=== PATIENT | female | born 1930 | race Caucasian/White ===

== ENCOUNTER 2017-08-23 20:32 | Inpatient (IN) ==
--- NOTE | 2017-08-23 21:04 | Emergency Department Note ---
Lower Extremity Injury HPI - General Chief Complaint: Extremity Injury, Lower Stated Complaint: lower extremity Time Seen by Provider: 08/23/17 20:36 Source: patient Mode of arrival: ambulatory Limitations: no limitations - History of Present Illness HPI Narrative: Patient presents with a stiff left leg and pain difficulty ambulating. Primary concern was that she could not get off the toilet has been experiencing increasing urinary frequency and urgency and incomplete emptying her bladder. 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 This afternoon cramping sensation in the left lower leg and thigh with weakness of the foot unable to bend the knee. Didn't apply a hot pack but unable to change, was painful at times. Sense of "knots in the muscle". States only present the left leg and on the right. Unable to walk without assistance. Requesting a catheter to her bladder discomfort. No fevers or chills no back pain and hematuria. - Related Data Home Medications Medication Instructions Recorded Confirmed [id number] tablet See Dose Instructions PO QDAY 09/22/14 08/23/15 cholecalciferol (vitamin D3) 2,000 2,000 unit PO QDAY cap 09/22/14 08/23/15 unit capsule pyridostigmine bromide 60 mg tablet PO 90 Days #270 10/15/16 10/15/16 Previous Rx's Medication Instructions Recorded KATHRINE stockings #2 each 02/25/15 hydroxyzine HCl 10 mg tablet 10 mg PO TID PRN #60 tab 03/07/15 pyridostigmine bromide ER 180 mg 180 mg PO QID #120 tab 10/15/16 tablet,extended release clindamycin HCl 150 mg capsule 150 mg PO BID #20 cap 11/01/16 Allergies Allergy/AdvReac Type Severity Reaction Status Date / Time meperidine Allergy Unknown UNKNOWN Verified 10/15/16 14:28 nabumetone Allergy Unknown UNKNOWN Verified 10/15/16 14:28 nitrofurantoin Allergy Unknown UNKNOWN Verified 10/15/16 14:28 Sulfa (Sulfonamide Allergy Unknown NERVE PAIN Verified 10/15/16 14:28 Antibiotics) [SULFA (SULFONAMIDE ANTIBIOTICS)] sulfamethoxazole Allergy Unknown Unknown Verified 10/15/16 14:28 [From Bactrim] trimethoprim [From Bactrim] Allergy Unknown Unknown Verified 10/15/16 14:28 Review of Systems All systems ED: reviewed and negative except as stated. Constitutional: Denies: fever, chills ENT ED: Denies: ear pain Cardiovascular: Denies: chest pain, palpitations Respiratory: Denies: shortness of breath Gastrointestinal: Denies: abdominal pain Past Medical History - Past Medical History Attestation: Yes: The following information was validated with the patient. Medical history: Reports: other (myasthenia gravis) Surgical history ED: Reports: knee replacement Family history: Reports: non-contributory - Social History smoking status: Never smoker Physical Exam Limitations: no limitations General appearance: alert, in distress Head: atraumatic, normocephalic Eye: Present: normal appearance. Absent: scleral icterus ENT: normal exam, mucous membranes moist Neck: Present: normal inspection. Absent: lymphadenopathy, thyromegaly Chest: Present: normal inspection. Absent: tenderness Respiratory: Present: normal lung sounds bilaterally. Absent: respiratory distress Cardiovascular: Present: regular rate, normal rhythm Abdominal: Present: soft. Absent: tenderness Extremities: Present: other (hyperreflexive left leg, stiff but no cogwheeling, pain in range of motion particularly in the left hip with associated weakness. Week plantarflexion and dorsiflexion of the great toe on the left when compared to the right she actively flexes and extends above the knee and foot. Pain on flexion and rotation of the hip as well) Course - Reevaluation(s) Reevaluation #1: Patient quizzed again about possible fall, denies Time: 22:37 Vital Signs Temperature 98.0 F 08/23/17 20:34 Pulse Rate 97 H 08/23/17 20:34 Respiratory Rate 19 08/23/17 20:34 Blood Pressure 192/74 08/23/17 20:34 Pulse Oximetry (%) 95 08/23/17 20:34 Temperature 98.0 F 08/23/17 20:34 Pulse Rate 92 H 08/23/17 21:31 Respiratory Rate 19 08/23/17 20:34 Blood Pressure 169/64 08/23/17 21:31 Pulse Oximetry (%) 97 08/23/17 21:31 Extremity Injury, Lower - Lab Data Lab results reviewed: Yes I reviewed the patient's lab results. Result diagrams: 08/23/17 21:06 08/23/17 21:06 Lab Results 08/23/17 08/23/17 Range/Units 21:06 21:06 WBC 16.0 H (4.5-11.0) K/mcL RBC 4.82 (4.00-5.20) M/mcL Hgb 14.3 (12.0-15.0) g/dL Hct 41.6 (36.0-48.0) % MCV 86.4 (80.0-100.0) fL MCH 29.7 (26.0-34.0) pg MCHC 34.4 (31.0-36.0) g/dL RDW 12.1 (11.5-14.5) % Plt Count 255 (140-440) K/mcL MPV 7.8 (7.4-10.4) fL Gran % 83.0 H (38.0-78.0) % Lymph % (Auto) 10.2 L (15.5-49.0) % Moca % (Auto) 5.4 (1.0-12.0) % Eos % (Auto) 0.7 (0.0-7.0) % Baso % (Auto) 0.7 (0.0-2.0) % Gran # 13.3 H (1.8-8.0) K/mcL Lymph # (Auto) 1.6 (1.5-4.8) K/mcL Moca # (Auto) 0.9 (0.1-0.9) K/mcL Eos # (Auto) 0.1 (0.0-0.7) K/mcL Baso # (Auto) 0.1 (0.0-0.3) K/mcL Sodium 139 (133-145) mmol/L Potassium 4.1 (3.3-5.1) mmol/L Chloride 102 (96-108) mmol/L Carbon Dioxide 23 (22-30) mmol/L Anion Gap 14.0 (8-16) BUN 18 (8-23) mg/dl Creatinine 0.7 (0.6-1.1) mg/dl GFR Calculation 80 Glucose 157 H (70-105) mg/dL Calcium 9.3 (8.6-10.4) mg/dl Magnesium 2.0 (1.6-2.5) mg/dL Total Bilirubin 0.4 (0.0-1.0) mg/dL AST 28 (0-37) U/l ALT 23 (0-40) U/l Alkaline Phosphatase 105 (39-117) U/L Total Protein 7.0 (5.9-8.4) gm/dL Albumin 3.9 (3.2-5.2) gm/dL Globulin 3.1 (2.2-3.7) gm/dL Albumin/Globulin Ratio 1.3 (1.0-2.3) TSH 2.83 (0.27-5.01) uIU/ml - Radiology Data Radiology results reviewed: Yes I reviewed the patient's radiology results. CT pelvis with sacral LR fracture, superior inferior left ramus fractures of the pubis. CT of the lumbar spine normal Disposition Pt seen by [facility] only: No Clinical Impression: Urinary retention Pelvic ring fracture Qualifiers: Encounter type: initial encounter Fracture type: closed Qualified Code(s): S32.810A - Multiple fractures of pelvis with stable disruption of pelvic ring, initial encounter for closed fracture Summary: No clear fall, suspect insufficiency Unable to send home due to multiple pelvic fractures Disposition: Xfer As Inpt ([facility]) Condition: Fair Referrals: Jere Hernandez MD [Primary Care Provider] -
[2017-08-23 22:16] LABS: ALT/SGPT 23 U/l (0-40); Albumin 3.9 gm/dL (3.2-5.2); Albumin/Globulin Ratio 1.3 (1.0-2.3); Alkaline Phosphatase 105 U/L (39-117); Blood Urea Nitrogen 18 mg/dl (8-23)
[2017-08-23 22:18] LABS: Basophils # (Auto) 0.1 K/mcL (0.0-0.3); Basophils % (Auto) 0.7 % (0.0-2.0); Eosinophils # (Auto) 0.1 K/mcL (0.0-0.7); Eosinophils % (Auto) 0.7 % (0.0-7.0); Lymphocytes # (Auto) 1.6 K/mcL (1.5-4.8); Lymphocytes % (Auto) 10.2 % (15.5-49.0); Mean Cell Volume 86.4 fL (80.0-100.0); Mean Corpuscular HGB Conc 34.4 g/dL (31.0-36.0); Mean Corpuscular Hemoglobin 29.7 pg (26.0-34.0); Monocytes # (Auto) 0.9 K/mcL (0.1-0.9); Monocytes % (Auto) 5.4 % (1.0-12.0); Platelet Count 255 K/mcL (140-440); RBC 4.82 M/mcL (4.00-5.20); Red Cell Distribution Width 12.1 % (11.5-14.5)
[2017-08-23] MEDS ORDERED: IBUPROFEN 400 MG TABLET PO PRN (23:50)
[2017-08-23] MEDS ORDERED: IBUPROFEN 400 MG TABLET PO ONE ×2 (23:50→23:58)
--- NOTE | 2017-08-23 23:50 | Internal Med History&Physical ---
Medical - H&P: HPI Patient information: Note initiated : 08/23/17 at 11:49 pm Service Date, if different from initiated Date: [] Patient: Abby Bradford 86 y/o F admitted on for lower extremity. Chief Complaint: [] History of present illness: Ms. Brafdord is a 86 year old Female with h/o mysthenia gravis for around 40 yrs, presents to the ER for pain in the left leg, weakness in the left leg starting this afternoon The patient notes she has chronic cramps in the legs. Usually she is able to manage them by applying some heat or cold pads on the leg. This time around she notes her pain started in the left lower foot, cramping in nature, severe, this is not new to her, as time progressed the cramping gradually crept up the thigh. She had significant cramping in the upper part of the thigh. She had significant pain, weakness as well as inability to move. The pain weakness and inability to move her leg is something that is new to her and therefore she came to the ER for further evaluation. She denies any trauma. She has been doing her usual activities and sorting through her stuff in the house but denies any missing steps falling or any unusual activity In the emergency room patient was hemodynamically stable, however she had significant pain and was finding it difficult to ambulate. She requested a Ramos catheter to be placed as she will not be able to use the restroom. She does have overactive bladder symptoms. The patient had a CT scan of the lumbar spine as well as pelvis, lumbar spine according to the ER physician was negative for any acute pathology however the patient has multiple pelvic fractures, on the superior as well as inferior pubic ramus on the left side, and sacral alar. Given that patient has new pelvic fractures, is unable to ambulate by herself she is being admitted to the hospital for further management. The patient denies any revision, diplopia, she does have chronic difficulty in swallowing which gets worse when she is tired but no acute worsening reported. She denies chest pain or shortness of breath, denies any acute cough, no nausea vomiting abdominal pain or diarrhea, she has chronic intermittent constipation. 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) Degenerative disc disease (Chronic 03/05/13) Bladder prolapse (Chronic 03/05/13) Blurred vision (Chronic) Pedal edema (Chronic) Unsteady gait (Chronic) Sialoadenitis (Resolved 09/26/13) Surgical history: Past Surgical History History of (Resolved) History of colonoscopy (Resolved) History of hysterectomy (Resolved) History of knee replacement (Resolved) History of rectocele (Resolved) History of spinal fusion (Resolved) Pertinent family history: Family History Brother Asthma Malignant neoplasm Sister Asthma All 8 Siblings Asthma Cardiac disease Sister Cyst of breast Malignant neoplasm Osteoporosis Unknown Diabetes mellitus Disorder of thyroid Father Cardiac disease Malignant neoplasm Mother Cardiac disease Medical - H&P: Meds Home Medications Medication Instructions Recorded Confirmed Type pyridostigmine bromide ER 180 mg 180 mg PO QID #120 tab 10/15/16 08/23/17 Rx tablet,extended release Allergies Allergy/AdvReac Type Severity Reaction Status Date / Time meperidine Allergy Unknown UNKNOWN Verified 10/15/16 14:28 nabumetone Allergy Unknown UNKNOWN Verified 10/15/16 14:28 nitrofurantoin Allergy Unknown UNKNOWN Verified 10/15/16 14:28 Sulfa (Sulfonamide Allergy Unknown NERVE PAIN Verified 10/15/16 14:28 Antibiotics) [SULFA (SULFONAMIDE ANTIBIOTICS)] sulfamethoxazole Allergy Unknown Unknown Verified 10/15/16 14:28 [From Bactrim] trimethoprim [From Bactrim] Allergy Unknown Unknown Verified 10/15/16 14:28 Medical - H&P: Exam - Constitutional Vitals: Temp Pulse Resp BP Pulse Ox 98.0 F 92 H 19 169/64 97 08/23/17 20:34 08/23/17 21:31 08/23/17 20:34 08/23/17 21:31 08/23/17 21:31 Exam: GENERAL: The patient is a well-developed, well-nourished in no apparent distress. Is alert and oriented x3. VITAL SIGNS: Reviewed and as noted elsewhere. HEENT: Head is normocephalic and atraumatic. Extraocular muscles are intact. Pupils are equal, round, and reactive to light. Nares appeared normal. Mouth appears any without lesions. Mucous membranes are moist. NECK: Normal to inspection, Supple, No lymphadenopathy or thyromegaly. LUNGS: Air entry equal on both sides, no wheezing, crackles or rhonchi noted. No accessory muscles of respiration HEART: Regular rate and rhythm normal, S1 and S2 heard, no Gallop, S3 or Rub Noted, No Gross murmur heard. ABDOMEN: Soft, nontender, and nondistended. Positive bowel sounds. No hepatosplenomegaly was noted. EXTREMITIES: No cyanosis, clubbing, rash, lesions or edema. NEUROLOGIC: Cranial nerves II through XII are grossly intact. Motor and Sensory System Grossly Intact, she is able to move both her lower extremities on my exam , strength 4+/5 in right leg, around 4/5 in left leg, full exam not done in light of acute fracture and significant pain during extremity manipulation. PSYCHIATRIC: Normal affect, Normal Mood. Appropriate Behavior. SKIN: No ulceration or wounds noted, No jaundice, No rash noted. Medical - H&P: Reslt - Labs CBC & Chem 7: 08/23/17 21:06 08/23/17 21:06 Labs: Short CBC 08/23/17 Range/Units 21:06 WBC 16.0 H (4.5-11.0) K/mcL Hgb 14.3 (12.0-15.0) g/dL Hct 41.6 (36.0-48.0) % Plt Count 255 (140-440) K/mcL BMP 08/23/17 21:06 Sodium 139 Potassium 4.1 Chloride 102 Carbon Dioxide 23 BUN 18 Creatinine 0.7 Glucose 157 H Calcium 9.3 Liver Function 08/23/17 Range/Units 21:06 Total Bilirubin 0.4 (0.0-1.0) mg/dL AST 28 (0-37) U/l ALT 23 (0-40) U/l Alkaline Phosphatase 105 (39-117) U/L Albumin 3.9 (3.2-5.2) gm/dL Medical - H&P: A/P - Narrative A/P Narrative: A/P Pelvis fracture/ sacral insufficiency fracture: etiology? 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 await full radiology report in AM Pain management: Pt does not want Tylenol as she notes its toxic to liver, does not want opiates or muscle relazants, wishes to use nsaids, asked for ibuprofen which she has used before, ok with ketorolac if absolutely needed, touch base with ortho in AM and see if there is any operative myasthenia gravis, on pyridostigmine, 180mg sr every 6 hrs, with food, she has her own med, which she plans to take during the hospital stay. continue same, she does not seem to be having an acute exacerbation fo same Leucocytosis: check procalcitonin, and ua, check CXR, hold off on ABX for now given severe side effects reported by the patient if abx used. DVT hep sq Diet regular Full code. Admit to inpt status, anticipate > 3 midnight stay. Social History - Tobacco smoking status: Never smoker
[2017-08-24] MEDS ORDERED: ONDANSETRON 4 MG/2 ML VIAL IV PRN (00:16)
[2017-08-24] MEDS ORDERED: IBUPROFEN 400 MG TABLET PO ONE (00:16)
[2017-08-24] MEDS ORDERED: MAGNESIUM HYDROXIDE 30 ML ORAL.SUSP PO PRN (00:16)
[2017-08-24] MEDS ORDERED: IBUPROFEN 400 MG TABLET PO PRN (00:16)
[2017-08-24] MEDS ORDERED: KETOROLAC 15 MG/ML VIAL IV PRN (00:16)
[2017-08-24] MEDS ORDERED: NALOXONE HCL 0.4 MG/ML VIAL IV PRN (00:16)
[2017-08-24] MEDS: DEXTROSE 5%-LR 1,000 ML IV SCH ×2 (00:46→12:43)
[2017-08-24] MEDS: PYRIDOSTIGMINE 180 MG PO SCH ×4 (00:46→18:04)
[2017-08-24 01:02] LABS: Appearance,Urine CLEAR; Bacteria,Urine FEW /hpf (0); Bilirubin,Urine NEG (NEG); Color,Urine STRAW; Glucose,Urine (UA) NEGATIVE (NEG); Leukocyte Esterase,Urine NEG /uL (NEG); Mucus,Urine FEW /hpf (0); Protein,Urine NEG (NEG); Specific Gravity,Urine 1.005 (1.000-1.035); Urine Blood NEG mg/dL (<0.03); Urine RBC 1 /hpf (0-1); Urine Squamous Epithelial Cell 0 /hpf (0-4); Urine WBC < 1 /hpf (0-4); Urobilinogen,Urine NEG (NEG)
[2017-08-24 05:32] LABS: Basophils # (Auto) 0 K/mcL (0.0-0.3); Basophils % (Auto) 0.4 % (0.0-2.0); Eosinophils # (Auto) 0.1 K/mcL (0.0-0.7); Eosinophils % (Auto) 1.2 % (0.0-7.0); Granulocytes % (Auto) 67.4 % (38.0-78.0); Lymphocytes # (Auto) 2.2 K/mcL (1.5-4.8); Lymphocytes % (Auto) 21.1 % (15.5-49.0); Mean Cell Volume 87.7 fL (80.0-100.0); Mean Corpuscular Hemoglobin 29.8 pg (26.0-34.0); Monocytes % (Auto) 9.9 % (1.0-12.0); Platelet Count 207 K/mcL (140-440); RBC 4.14 M/mcL (4.00-5.20); Red Cell Distribution Width 12.8 % (11.5-14.5)
[2017-08-24] MEDS: 0.9 % SODIUM CHLORIDE 10 ML SYRINGE IV SCH ×3 (05:57→20:53)
[2017-08-24 08:04] LABS: ALT/SGPT 19 U/l (0-40); Albumin 3.6 gm/dL (3.2-5.2); Albumin/Globulin Ratio 1.4 (1.0-2.3); Alkaline Phosphatase 84 U/L (39-117); Bilirubin,Direct < 0.2 mg/dL (0.0-0.3); Blood Urea Nitrogen 17 mg/dl (8-23); Gamma Glutamyl Transpeptidase 12 U/L (5-36)
--- NOTE | 2017-08-24 08:07 | Cat Scan Report ---
CLINICAL INFORMATION: Trauma COMPARISON: 02/24/[address] TECHNIQUE: .625 mm helical slices were obtained from the mid L4 through the subtrochanteric regions. Following reconstruction, 2.5 mm sagittal, coronal and axial reformations were processed. The exam was reviewed in bone and soft tissue windows. The exam was performed using radiation dose optimization techniques including, but not limited to, automated exposure control, adjustment of mA and/or kV according to patient size and use of iterative reconstruction technique. FINDINGS: There is a mildly comminuted, acute vertically oriented fracture extending through the left ala. It is nondisplaced. There are mildly comminuted and mildly displaced fractures of the left superior and left inferior pubic rami with small adjacent soft tissue hematoma. Moderate arthritic changes noted in both SI joints with partial ankylosis similar previous study. Both hips are normal in width and alignment. Chronic grade 2 L5-S1 spondylolisthesis featuring 10 mm of L5 anterior subluxation is again seen. The L5 and S1 vertebral bodies are fused. This has resulted in only mild central canal and IV foraminal narrowing which is. There is also fusion of the L4-5 and L5-S1 facets. The visualized small and large bowel are significant significant only for sigmoid diverticulosis. No free air or free fluid. No adenopathy. Ramos catheter is in proper position the bladder bladder is decompressed IMPRESSION: 1. Mildly comminuted acute mildly displaced fracture the left superior and inferior pubic rami. 2. Nondisplaced acute vertical fracture of the left sacral ala 3. Sigmoid diverticulosis 4. Chronic L5-S1 grade 2 spondylolisthesis with vertebral fusion results in only mild central canal and IV foraminal narrowing. This is stable. L4-5 and L5-S1 facet fusion - stable Interpreted and Authenticated by: Miguel Buenrostro 08/24/17
--- NOTE | 2017-08-24 08:17 | XRay Report ---
CLINICAL INFORMATION: Elevated white blood cell count COMPARISON: 12/25/2010 FINDINGS: The heart size, mediastinum and pulmonary vessels are unremarkable. The lungs are clear. There are no effusions. The bones and soft tissues are within normal limits. IMPRESSION: Normal chest. Interpreted and Authenticated by: Miguel Bunerostro 08/24/17
[2017-08-24] MEDS: FAMOTIDINE 20 MG TABLET PO SCH ×2 (08:30→20:51)
[2017-08-24] MEDS: HEPARIN 5,000 UNIT/ML VIAL SQ SCH ×2 (08:30→20:51)
--- NOTE | 2017-08-24 12:23 | Cat Scan Report ---
CLINICAL INFORMATION: Low back pain and left leg radiculopathy . Recent trauma COMPARISON: 01/05/2011 TECHNIQUE: 0.625 mm helical slices were obtained from the mid T12 through mid S2 vertebral bodies. Following reconstruction, 2.5 mm coronal, sagittal, and axial reformations (angle to the disc spaces) were processed. Exam was reviewed at bone and soft tissue windows.The exam was performed using radiation dose optimization techniques including, but not limited to, automated exposure control, adjustment of the mA and/or kV according to patient size and use of iterative reconstruction technique. FINDINGS: Sagittal images show 8 mm of L5 chronic subluxation with the posterior L5 endplate fused to the anterior superior S1 endplate. This is unchanged. There is also solid fusion of the L3-4, L4-5 and L5-S1 facets. The remainder of the lumbar spine is anatomically aligned. No fractures are seen within the lumbar spine: however, there is a vertically oriented fracture of the left sacral ala as described on the pelvic CT. Displaced fractures of left superior and inferior pubic rami are also seen. At T10-11, T11-T12, T12-L1 disc levels are normal. At L1-2, moderate broad disc spur complex with left-sided asymmetry results in mild left IV foraminal narrowing. At L2-3, mild broad disc protrusion with left-sided asymmetry results in mild left IV foraminal narrowing. The L3-4 and L4-5 disc levels are normal with normal central canal, lateral recess and IV foramina are widely patent. At L5-S1, minimal broad disc protrusion with grade 1 spondylolisthesis has resulted in mild central canal and only mild bilateral IV foraminal narrowing. No root impingement evident. IMPRESSION: 1. No fracture or acute posttraumatic change within the lumbar spine. Acute sagittal fracture through the left sacral ala and also displaced comminuted acute fractures of the superior-inferior pubic rami were described on pelvic CT 2. Chronic grade 2 L5-S1 spondylolisthesis. The L5 vertebral body is fused to the S1 vertebral body in the subluxed position. As a result as result, there is mild central canal and IV foraminal narrowing without root impingement. This is unchanged radiographically. 3. Solid L3-4 through L5-S1 bilateral facet fusion 4. Multilevel degenerative change stable Interpreted and Authenticated by: Miguel Buenrostro 08/24/17
[2017-08-24] MEDS: IBUPROFEN 200 MG TABLET PO PRN ×2 (13:19→20:50)
--- NOTE | 2017-08-24 15:14 | Internal Med Progress Note ---
Medical - PN: Subj Patient information: Note initiated : 08/24/17 at 3:12 pm Service Date, if different from initiated Date: [] Patient: Abby Bradford 86 y/o F admitted on 08/24/17 for lower extremity. Chief Complaint: [] Interval history: Ms. Bradford is a 86 year old Female with h/o mysthenia gravis for around 40 yrs, presents to the ER for pain in the left leg, weakness in the left leg starting this afternoon The patient notes she has chronic cramps in the legs. Usually she is able to manage them by applying some heat or cold pads on the leg. This time around she notes her pain started in the left lower foot, cramping in nature, severe, this is not new to her, as time progressed the cramping gradually crept up the thigh. She had significant cramping in the upper part of the thigh. She had significant pain, weakness as well as inability to move. The pain weakness and inability to move her leg is something that is new to her and therefore she came to the ER for further evaluation. She denies any trauma. She has been doing her usual activities and sorting through her stuff in the house but denies any missing steps falling or any unusual activity In the emergency room patient was hemodynamically stable, however she had significant pain and was finding it difficult to ambulate. She requested a Ramos catheter to be placed as she will not be able to use the restroom. She does have overactive bladder symptoms. The patient had a CT scan of the lumbar spine as well as pelvis, lumbar spine according to the ER physician was negative for any acute pathology however the patient has multiple pelvic fractures, on the superior as well as inferior pubic ramus on the left side, and sacral alar. Given that patient has new pelvic fractures, is unable to ambulate by herself she is being admitted to the hospital for further management. The patient denies any revision, diplopia, she does have chronic difficulty in swallowing which gets worse when she is tired but no acute worsening reported. She denies chest pain or shortness of breath, denies any acute cough, no nausea vomiting abdominal pain or diarrhea, she has chronic intermittent constipation. 08/24 Pt seen examined no acute ovenright events, pain reasonably controlled reviewed imaging with ortho, only conseravtive management needed continue pain control and rehab, for now. Pertinent ROS: Denies headache, dizziness Denies chest pain, palpitations Denies cough or shortness of breath Denies abdominal pain, nausea or vomiting. - Constitutional Vitals: Vital Signs Temp Pulse Resp BP Pulse Ox 98.3 F 87 16 161/79 94 08/24/17 12:00 08/24/17 12:00 08/24/17 12:00 08/24/17 12:00 08/24/17 12:00 Period Temp Pulse Resp BP Sys/Willis Pulse Ox Last 24 Hr 97.8 F-98.8 F 73-106 16-19 149-192/59-128 94-98 Intake and Output 08/24/17 08/24/17 08/24/17 05:59 13:59 21:59 Intake Total 300 / 300 896 / 896 Output Total 700 / 700 1450 / 1450 Balance -400 / -400 -554 / -554 Weight 143 lb Intake & Output: Intake & Output 08/24/17 08/24/17 08/24/17 05:59 13:59 21:59 Intake Total 300 / 300 896 / 896 Output Total 700 / 700 1450 / 1450 Balance -400 / -400 -554 / -554 Weight 143 lb Intake: IV 896 / 896 Dextrose 5%-Lactated Ringers 1, 896 / 896 000 ml @ 75 mls/hr IV .[id number] [facility] Rx#:[id number] Oral 300 / 300 Output: Urine Catheter Amount 700 / 700 1450 / 1450 Other: Meal Lunch Percent of Meal Consumed 100% Feeding Ability Independent Exam: Constitutional; Afebrile, cooperative, alert, not in distress. Eyes- No icterus, , No periorbital swelling Ears- Ext ear normal, hearing normal to conversation. Neck- Midline trachea, supple Respiratory system: Air Entry equal on both sides, No crackles or wheezing, no rhonchi. CVS- Rate rhythm regular, S1,S2 heard, no gallop, no rub. 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 Medical - PN: Obj Da - Labs CBC & Chem 7: 08/24/17 04:00 08/24/17 04:00 Labs: Abnormal Lab Results 08/24/17 08/24/17 08/24/17 04:00 04:00 00:00 WBC Gran % Lymph % (Auto) Gran # [place] # (Auto) 1.0 H Glucose 113 H Lactate Dehydrogenase 286 H Urine Bacteria Few A 08/23/17 08/23/17 21:06 21:06 WBC 16.0 H Gran % 83.0 H Lymph % (Auto) 10.2 L Gran # 13.3 H [place] # (Auto) Glucose 157 H Lactate Dehydrogenase Urine Bacteria Meds: Medications Famotidine (Pepcid) 20 mg PO BID [facility] Last Admin: 08/24/17 08:30 Dose: 20 mg Heparin Sodium (Porcine) (Heparin) 5,000 unit SQ Q12 [facility] Last Admin: 08/24/17 08:30 Dose: 5,000 unit Dextrose/Lactated Ringer's (Dextrose 5%-Lactated Ringers) 1,000 mls @ 75 mls/ hr IV .[id number] [facility] Stop: 08/25/17 02:55 Last Admin: 08/24/17 12:43 Dose: 75 mls/hr Ibuprofen (Motrin) 400 mg PO QIDP PRN PRN Reason: Pain Last Admin: 08/24/17 13:19 Dose: 400 mg Ketorolac Tromethamine (Toradol) 15 mg IV Q6HP PRN PRN Reason: Pain severe Stop: 08/26/17 00:02 Magnesium Hydroxide (Milk Of Magnesia) 30 ml PO DAILYP PRN PRN Reason: Constipation Naloxone HCl (Narcan) 0.1 mg IV Q2MIN PRN PRN Reason: Opiate Reversal Ondansetron HCl (Zofran) 4 mg IV Q6HP PRN PRN Reason: Nausea And Vomiting Pyridostigmine [place] (Mestinon) 180 mg PO Q6 [facility] Last Admin: 08/24/17 12:02 Dose: 180 mg Sodium Chloride (Saline Flush) 10 ml IV Q8 [facility] Last Admin: 08/24/17 05:57 Dose: Not Given Medical - PN: A/P - Time Spent With Patient Total time spent is greater than 50% in coordination of care (as documented) at patient's floor/unit and/or counseling patient: - Narrative A/P Narrative: A/P Pelvis fracture/ sacral insufficiency fracture: etiology? 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 conservative management, wt bearing as tolerated, rehab. Pain management: Pt does not want Tylenol as she notes its toxic to liver, does not want opiates or muscle relazants, wishes to use nsaids, asked for ibuprofen which she has used before, ok with ketorolac if absolutely needed, myasthenia gravis, on pyridostigmine, 180mg sr every 6 hrs, with food, she has her own med, which she plans to take during the hospital stay. continue same, she does not seem to be having an acute exacerbation fo same Leucocytosis: resolved, no e/o active infection. DVT hep sq Diet regular Full code. Medical - PN: Qual - Stroke Symptom Onset Unknown: No - VTE Deep Vein Thrombosis/Pulmonary Embolism Present on Admission: No
[2017-08-25] MEDS: PYRIDOSTIGMINE 180 MG PO SCH ×5 (00:08→23:48)
[2017-08-25 05:05] LABS: Basophils # (Auto) 0.1 K/mcL (0.0-0.3); Basophils % (Auto) 0.6 % (0.0-2.0); Eosinophils # (Auto) 0.3 K/mcL (0.0-0.7); Eosinophils % (Auto) 3.1 % (0.0-7.0); Granulocytes % (Auto) 54.8 % (38.0-78.0); Lymphocytes # (Auto) 3.4 K/mcL (1.5-4.8); Lymphocytes % (Auto) 31.7 % (15.5-49.0); Mean Cell Volume 88.1 fL (80.0-100.0); Mean Corpuscular Hemoglobin 29.9 pg (26.0-34.0); Monocytes % (Auto) 9.8 % (1.0-12.0); Platelet Count 192 K/mcL (140-440); RBC 4.18 M/mcL (4.00-5.20); Red Cell Distribution Width 12.7 % (11.5-14.5)
[2017-08-25 05:23] LABS: ALT/SGPT 18 U/l (0-40); Albumin 3.2 gm/dL (3.2-5.2); Albumin/Globulin Ratio 1.1 (1.0-2.3); Alkaline Phosphatase 92 U/L (39-117); Bilirubin,Direct < 0.2 mg/dL (0.0-0.3); Blood Urea Nitrogen 17 mg/dl (8-23); Gamma Glutamyl Transpeptidase 13 U/L (5-36); Uric Acid 4.1 mg/dL (2.5-8.0)
[2017-08-25] MEDS: 0.9 % SODIUM CHLORIDE 10 ML SYRINGE IV SCH ×3 (06:03→20:45)
[2017-08-25] MEDS: IBUPROFEN 200 MG TABLET PO PRN ×2 (06:50→20:45)
[2017-08-25] MEDS: FAMOTIDINE 20 MG TABLET PO SCH ×2 (08:52→20:45)
[2017-08-25] MEDS: HEPARIN 5,000 UNIT/ML VIAL SQ SCH ×2 (08:52→20:44)
[2017-08-25] MEDS ORDERED: HYDROcodone/APAP 7.5MG/15ML 15 ML UDC PO PRN (10:12)
--- NOTE | 2017-08-25 11:17 | Internal Med Progress Note ---
Medical - PN: Subj Patient information: Note initiated : 08/25/17 at 11:14 am Service Date, if different from initiated Date: [] Patient: Abby Bradford 86 y/o F admitted on 08/24/17 for lower extremity. Chief Complaint: [] Interval history: Ms. Bradford is a 86 year old Female with h/o mysthenia gravis for around 40 yrs, presents to the ER for pain in the left leg, weakness in the left leg starting this afternoon The patient notes she has chronic cramps in the legs. Usually she is able to manage them by applying some heat or cold pads on the leg. This time around she notes her pain started in the left lower foot, cramping in nature, severe, this is not new to her, as time progressed the cramping gradually crept up the thigh. She had significant cramping in the upper part of the thigh. She had significant pain, weakness as well as inability to move. The pain weakness and inability to move her leg is something that is new to her and therefore she came to the ER for further evaluation. She denies any trauma. She has been doing her usual activities and sorting through her stuff in the house but denies any missing steps falling or any unusual activity In the emergency room patient was hemodynamically stable, however she had significant pain and was finding it difficult to ambulate. She requested a Ramos catheter to be placed as she will not be able to use the restroom. She does have overactive bladder symptoms. The patient had a CT scan of the lumbar spine as well as pelvis, lumbar spine according to the ER physician was negative for any acute pathology however the patient has multiple pelvic fractures, on the superior as well as inferior pubic ramus on the left side, and sacral alar. Given that patient has new pelvic fractures, is unable to ambulate by herself she is being admitted to the hospital for further management. The patient denies any revision, diplopia, she does have chronic difficulty in swallowing which gets worse when she is tired but no acute worsening reported. She denies chest pain or shortness of breath, denies any acute cough, no nausea vomiting abdominal pain or diarrhea, she has chronic intermittent constipation. 08/24 Pt seen examined no acute ovenright events, pain reasonably controlled reviewed imaging with ortho, only conseravtive management needed continue pain control and rehab, for now. 08/25 Patient seen and examined, no acute overnight events, patient is reasonably controlled at rest however is extremely painful to ambulate or participate in therapy. The patient notes that ibuprofen is not helping as she had expected. She is willing to try a low dose of opiate for now. Given that she only wants pain medication before physical therapy I will try to use liquid formulary so that it will absorb faster. Start the patient on 2.5 mg of hydrocodone every 4 hours or before physical therapy to see if this helps her participate well in PT. Patient's labs are stable Plan of care reviewed with the patient Pertinent ROS: Denies headache, dizziness Denies chest pain, palpitations Denies cough or shortness of breath Denies abdominal pain, nausea or vomiting. - Constitutional Vitals: Vital Signs Temp Pulse Resp BP Pulse Ox 97.8 F 81 16 150/66 94 08/25/17 08:00 08/25/17 08:00 08/25/17 08:00 08/25/17 08:00 08/25/17 08:00 Period Temp Pulse Resp BP Sys/Willis Pulse Ox Last 24 Hr 97.7 F-99.3 F 75-87 16-20 128-173/66-79 94-95 Intake and Output 08/24/17 08/25/17 08/25/17 21:59 05:59 13:59 Intake Total 2580 / 2580 400 / 400 Output Total 2300 / 2300 1150 / 1150 1450 / 1450 Balance 280 / 280 -750 / -750 -1450 / -1450 Weight 144 lb Intake & Output: Intake & Output 08/24/17 08/25/17 08/25/17 21:59 05:59 13:59 Intake Total 2580 / 2580 400 / 400 Output Total 2300 / 2300 1150 / 1150 1450 / 1450 Balance 280 / 280 -750 / -750 -1450 / -1450 Weight 144 lb Intake: Oral 2580 / 2580 400 / 400 Output: Urine Catheter Amount 2300 / 2300 1150 / 1150 1450 / 1450 Other: Meal Dinner Percent of Meal Consumed 75% Feeding Ability Independent Exam: Constitutional; Afebrile, cooperative, alert, not in distress. Eyes- No icterus, , No periorbital swelling Ears- Ext ear normal, hearing normal to conversation. Neck- Midline trachea, supple Respiratory system: Air Entry equal on both sides, No crackles or wheezing, no rhonchi. CVS- Rate rhythm regular, S1,S2 heard, no gallop, no rub. 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 Medical - PN: Obj Da - Labs CBC & Chem 7: 08/25/17 04:05 08/25/17 04:05 Labs: Abnormal Lab Results 08/25/17 08/24/17 08/24/17 04:05 04:00 04:00 WBC Gran % Lymph % (Auto) Gran # [place] # (Auto) 1.0 H 1.0 H Glucose 113 H Lactate Dehydrogenase 286 H Urine Bacteria 08/24/17 08/23/17 08/23/17 00:00 21:06 21:06 WBC 16.0 H Gran % 83.0 H Lymph % (Auto) 10.2 L Gran # 13.3 H [place] # (Auto) Glucose 157 H Lactate Dehydrogenase Urine Bacteria Few A Meds: Medications Hydrocodone Bitart/Acetaminophen (Lortab 7.5mg/15ml Oral [place]) 5 ml PO Q4HP PRN PRN Reason: Pain Last Admin: 08/25/17 10:30 Dose: 5 ml Famotidine (Pepcid) 20 mg PO BID [facility] Last Admin: 08/25/17 08:52 Dose: 20 mg Heparin Sodium (Porcine) (Heparin) 5,000 unit SQ Q12 [facility] Last Admin: 08/25/17 08:52 Dose: 5,000 unit Ibuprofen (Motrin) 400 mg PO QIDP PRN PRN Reason: Pain Last Admin: 08/25/17 06:50 Dose: 400 mg Ketorolac Tromethamine (Toradol) 15 mg IV Q6HP PRN PRN Reason: Pain severe Stop: 08/26/17 00:02 Last Admin: 08/25/17 07:43 Dose: 15 mg Magnesium Hydroxide (Milk Of Magnesia) 30 ml PO DAILYP PRN PRN Reason: Constipation Naloxone HCl (Narcan) 0.1 mg IV Q2MIN PRN PRN Reason: Opiate Reversal Ondansetron HCl (Zofran) 4 mg IV Q6HP PRN PRN Reason: Nausea And Vomiting Pyridostigmine [place] (Mestinon) 180 mg PO Q6 [facility] Last Admin: 08/25/17 06:03 Dose: 180 mg Sodium Chloride (Saline Flush) 10 ml IV Q8 [facility] Last Admin: 08/25/17 06:03 Dose: 10 ml Medical - PN: A/P - Time Spent With Patient Total time spent is greater than 50% in coordination of care (as documented) at patient's floor/unit and/or counseling patient: - Narrative A/P Narrative: A/P Pelvis fracture/ sacral insufficiency fracture: etiology? 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 conservative management, wt bearing as tolerated, rehab. Pain management: on ibuprofen, IV toradol, will add low dose loratab liquid today see how she does. myasthenia gravis, on pyridostigmine, 180mg sr every 6 hrs, with food, she has her own med, which she plans to take during the hospital stay. continue same, she does not seem to be having an acute exacerbation fo same Leucocytosis: resolved, no e/o active infection. urine culture is positive, will await sensitivity, will talk to pt regardging abx use, she is hesitant to use abx DVT hep sq Diet regular Full code. Medical - PN: Qual - Stroke Symptom Onset Unknown: No - VTE Deep Vein Thrombosis/Pulmonary Embolism Present on Admission: No
[2017-08-26] MEDS: PYRIDOSTIGMINE 180 MG PO SCH ×4 (06:01→23:54)
[2017-08-26] MEDS: 0.9 % SODIUM CHLORIDE 10 ML SYRINGE IV SCH ×3 (06:02→21:25)
[2017-08-26] MEDS: IBUPROFEN 200 MG TABLET PO PRN ×2 (06:51→21:26)
[2017-08-26] MEDS: FAMOTIDINE 20 MG TABLET PO SCH ×2 (10:30→21:26)
[2017-08-26] MEDS: HEPARIN 5,000 UNIT/ML VIAL SQ SCH ×2 (10:30→21:26)
--- NOTE | 2017-08-26 11:42 | Internal Med Progress Note ---
Medical - PN: Subj Patient information: Note initiated : 08/26/17 at 11:38 am Service Date, if different from initiated Date: [] Patient: Abby Bradford 86 y/o F admitted on 08/24/17 for Lower Extremity/ Pelvic Ring Fracture. Chief Complaint: [] Interval history: Ms. Bradford is a 86 year old Female with h/o mysthenia gravis for around 40 yrs, presents to the ER for pain in the left leg, weakness in the left leg starting this afternoon The patient notes she has chronic cramps in the legs. Usually she is able to manage them by applying some heat or cold pads on the leg. This time around she notes her pain started in the left lower foot, cramping in nature, severe, this is not new to her, as time progressed the cramping gradually crept up the thigh. She had significant cramping in the upper part of the thigh. She had significant pain, weakness as well as inability to move. The pain weakness and inability to move her leg is something that is new to her and therefore she came to the ER for further evaluation. She denies any trauma. She has been doing her usual activities and sorting through her stuff in the house but denies any missing steps falling or any unusual activity In the emergency room patient was hemodynamically stable, however she had significant pain and was finding it difficult to ambulate. She requested a Ramos catheter to be placed as she will not be able to use the restroom. She does have overactive bladder symptoms. The patient had a CT scan of the lumbar spine as well as pelvis, lumbar spine according to the ER physician was negative for any acute pathology however the patient has multiple pelvic fractures, on the superior as well as inferior pubic ramus on the left side, and sacral alar. Given that patient has new pelvic fractures, is unable to ambulate by herself she is being admitted to the hospital for further management. The patient denies any revision, diplopia, she does have chronic difficulty in swallowing which gets worse when she is tired but no acute worsening reported. She denies chest pain or shortness of breath, denies any acute cough, no nausea vomiting abdominal pain or diarrhea, she has chronic intermittent constipation. 08/24 Pt seen examined no acute ovenright events, pain reasonably controlled reviewed imaging with ortho, only conseravtive management needed continue pain control and rehab, for now. 08/25 Patient seen and examined, no acute overnight events, patient is reasonably controlled at rest however is extremely painful to ambulate or participate in therapy. The patient notes that ibuprofen is not helping as she had expected. She is willing to try a low dose of opiate for now. Given that she only wants pain medication before physical therapy I will try to use liquid formulary so that it will absorb faster. Start the patient on 2.5 mg of hydrocodone every 4 hours or before physical therapy to see if this helps her participate well in PT. Patient's labs are stable Plan of care reviewed with the patient 08/26 Pt seen examined, no acute overnight events, no new complaints very demanding individual, often tangential in her stories notes does not like nursing help, but likes to do things by her self. UTI, ecoli, pastor sensitive, discussed need for rx, ok with keflex after a long discussion. plan for rehab in AM. still has intermittentw eakness in the legs. Pertinent ROS: Denies headache, dizziness Denies chest pain, palpitations Denies cough or shortness of breath Denies abdominal pain, nausea or vomiting. - Constitutional Vitals: Vital Signs Temp Pulse Resp BP Pulse Ox 97.7 F 68 18 146/66 97 08/26/17 06:57 08/26/17 03:20 08/26/17 06:57 08/26/17 06:57 08/26/17 06:57 Period Temp Pulse Resp BP Sys/Willis Pulse Ox Last 24 Hr 97.2 F-98.2 F 68-84 16-20 123-153/66-79 93-97 Intake and Output 08/25/17 08/26/17 08/26/17 21:59 05:59 13:59 Intake Total 1400 / 1400 450 / 450 Output Total 1200 / 1200 1725 / 1725 Balance 200 / 200 -1275 / -1275 Weight 145 lb Intake & Output: Intake & Output 08/25/17 08/26/17 08/26/17 21:59 05:59 13:59 Intake Total 1400 / 1400 450 / 450 Output Total 1200 / 1200 1725 / 1725 Balance 200 / 200 -1275 / -1275 Weight 145 lb Intake: Oral 1400 / 1400 450 / 450 Output: Urine Catheter Amount 1200 / 1200 1725 / 1725 Other: Meal Dinner 2x cinamin raisin toast w/ butter Percent of Meal Consumed 100% 100% Feeding Ability Independent Independent Stool Size Large Stool Color Brown Stool Consistency Soft Formed # Bowel Movements 1 Medical - PN: Obj Da - Labs CBC & Chem 7: 08/25/17 04:05 08/25/17 04:05 Labs: Abnormal Lab Results 08/25/17 08/24/17 08/24/17 04:05 04:00 04:00 WBC Gran % Lymph % (Auto) Gran # [place] # (Auto) 1.0 H 1.0 H Glucose 113 H Lactate Dehydrogenase 286 H Urine Bacteria 08/24/17 08/23/17 08/23/17 00:00 21:06 21:06 WBC 16.0 H Gran % 83.0 H Lymph % (Auto) 10.2 L Gran # 13.3 H [place] # (Auto) Glucose 157 H Lactate Dehydrogenase Urine Bacteria Few A Meds: Medications Hydrocodone Bitart/Acetaminophen (Lortab 7.5mg/15ml Oral [place]) 5 ml PO Q4HP PRN PRN Reason: Pain Last Admin: 08/25/17 10:30 Dose: 5 ml Cephalexin HCl (Keflex) 500 mg PO BID [facility] Stop: 08/29/17 11:44 Famotidine (Pepcid) 20 mg PO BID [facility] Last Admin: 08/26/17 10:30 Dose: 20 mg Heparin Sodium (Porcine) (Heparin) 5,000 unit SQ Q12 [facility] Last Admin: 08/26/17 10:30 Dose: 5,000 unit Ibuprofen (Motrin) 400 mg PO QIDP PRN PRN Reason: Pain Last Admin: 08/26/17 06:51 Dose: 400 mg Magnesium Hydroxide (Milk Of Magnesia) 30 ml PO DAILYP PRN PRN Reason: Constipation Naloxone HCl (Narcan) 0.1 mg IV Q2MIN PRN PRN Reason: Opiate Reversal Ondansetron HCl (Zofran) 4 mg IV Q6HP PRN PRN Reason: Nausea And Vomiting Pyridostigmine [place] (Mestinon) 180 mg PO Q6 [facility] Last Admin: 08/26/17 06:01 Dose: 180 mg Sodium Chloride (Saline Flush) 10 ml IV Q8 [facility] Last Admin: 08/26/17 06:02 Dose: 10 ml Medical - PN: A/P - Time Spent With Patient Total time spent is greater than 50% in coordination of care (as documented) at patient's floor/unit and/or counseling patient: - Narrative A/P Narrative: A/P Pelvis fracture/ sacral insufficiency fracture: etiology? 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 conservative management, wt bearing as tolerated, rehab. Pain management: on ibuprofen, IV toradol, will add low dose loratab liquid, has not needed much myasthenia gravis, on pyridostigmine, 180mg sr every 6 hrs, with food, she has her own med, which she plans to take during the hospital stay. continue same, she does not seem to be having an acute exacerbation fo same, intermittent weakness is present, but overall she seems stable, no dysphagia or diplopia at present. Ecoli UTI: Keflex 500mg bid x 3 days, DVT hep sq Diet regular Full code. Medical - PN: Qual - Stroke Symptom Onset Unknown: No - VTE Deep Vein Thrombosis/Pulmonary Embolism Present on Admission: No
[2017-08-26] MEDS: CEPHALEXIN 250 MG CAPSULE PO SCH ×2 (12:14→21:26)
[2017-08-27] MEDS: 0.9 % SODIUM CHLORIDE 10 ML SYRINGE IV SCH (05:49)
[2017-08-27] MEDS: PYRIDOSTIGMINE 180 MG PO SCH (06:22)
[2017-08-27] MEDS: IBUPROFEN 200 MG TABLET PO PRN (07:14)
[2017-08-27] MEDS: HEPARIN 5,000 UNIT/ML VIAL SQ SCH (08:20)
[2017-08-27] MEDS: FAMOTIDINE 20 MG TABLET PO SCH (08:20)
[2017-08-27] MEDS: CEPHALEXIN 250 MG CAPSULE PO SCH (08:20)
--- NOTE | 2017-08-27 09:24 | Discharge Summary ---
Medical - DS: Prov Patient information: Note initiated : 08/27/17 at 9:21 am Service Date, if different from initiated Date: [] Patient: Abby Bradford 86 y/o F admitted on 08/24/17 for Lower Extremity/ Pelvic Ring Fracture. Chief Complaint: [] Date of admission: 08/24/17 00:09 Discharge date: 08/27/17 Primary care physician: Jere Hernandez Admitting clinician: Alexandra Ventura Consults: 08/23/17 22:48 Consult to Physician [CONS] Stat Comment: Consulting Provider: Alexandra Ventura Reason For Exam: Physician to Consult Discharging clinician: Alexandra Ventura Medical - DS: Meds - Discharge Medications Prescriptions: Cephalexin [Keflex] 500 mg PO BID #3 cap oxyCODONE HCL [Oxycodone HCl] 2.5 - 5 mg PO Q6HP PRN #30 tab PRN Reason: Pain Active and Home Medications: Home Medications Pyridostigmine [Mestinon] 180 mg PO Q6H 08/24/17 [History Confirmed 08/24/17 Last Taken 08/23/17 00:00] Medical - DS: Hosp Hospital course: Ms. Bradford is a 86 year old Female with h/o mysthenia gravis for around 40 yrs, presented to the ER for pain in the left leg, weakness in the left leg .The patient notes she has chronic cramps in the legs. This time around she notes her pain started in the left lower foot, cramping in nature, severe, this is not new to her, as time progressed the cramping gradually crept up the thigh. She had significant cramping in the upper part of the thigh. She had significant pain, weakness as well as inability to move. The pain weakness and inability to move her leg is something that is new to her and therefore she came to the ER for further evaluation. She denies any trauma. She has been doing her usual activities and sorting through her stuff in the house but denies any missing steps falling or any unusual activity In the emergency room patient was hemodynamically stable, however she had significant pain and was finding it difficult to ambulate. She requested a Ramos catheter to be placed as she will not be able to use the restroom. She does have overactive bladder symptoms. The patient had a CT scan of the lumbar spine as well as pelvis, lumbar spine according to the ER physician was negative for any acute pathology however the patient has multiple pelvic fractures, on the superior as well as inferior pubic ramus on the left side, and sacral alar. Given that patient has new pelvic fractures, is unable to ambulate by herself she is being admitted to the hospital for further management. Pelvis Fracture: Minimally displaced fracture, I had the images reviewed by Ortho, no acute intervention needed, she is very osteoporotic, she will just need conservative management. OT/PT at a rehab center. The patient has a strong personality, does not like to use pain meds or muscle relaxants. She is ok using ibuprofen for pain, does not like tylenol as it causes liver damage. Educated to no avail. I have prescribed oxydodone low dose just incase the pain gets unbearable and she needs to use it. She will use ibuprofen prn, as she notes she has researched these meds and prefers ibuprofen over tylenol based on the safety profile. Urinary tract infection: UA was abnl, she has UTI, ecoli, pastor sensitive, she is on keflex for 3 days, she does have overactive bladder and also reports has proloapse issues. Kelfex on my litrature search did not affect patients with myasthenia Myasthenia gravis: Takes pyridostigmine as per Dr Aguilera, she still has some weakness in the left leg, which is intermittent, I have advised her to follow up with Dr Aguilera for follow up to see if medication needs to be adjusted . The rest of the stay in the hospital was uneventful. No changes done to her chr home meds. Discharge diagnosis: Pelvis fracture - Time Spent with Patient Total time spent providing and/or coordinating discharge services: Less than 30 minutes Medical - DS: Exam - Constitutional Vitals: Vital Signs Temp Pulse Resp BP BP Pulse Ox 08/27/17 07:29 98.3 F 96 H 20 107/63 96 08/27/17 04:00 97.8 F 68 20 118/65 98 08/26/17 23:57 98.4 F 84 14 132/72 94 08/26/17 20:00 98.8 F 105 H 14 151/67 96 08/26/17 16:00 97.6 F 88 20 06/04/18 12:24 97.6 F 88 12 146/80 95 Intake and Output 08/26/17 08/27/17 08/27/17 21:59 05:59 13:59 Intake Total 1400 / 1400 125 / 125 240 / 240 Output Total 1300 / 1300 975 / 975 200 / 200 Balance 100 / 100 -850 / -850 40 / 40 Intake: Oral 1400 / 1400 125 / 125 240 / 240 Output: Urine Catheter Amount 1300 / 1300 975 / 975 200 / 200 Other: Meal Dinner Percent of Meal Consumed 100% Feeding Ability Independent Stool Size Moderate Stool Color Brown Stool Consistency Soft # Bowel Movements 1 Weight 145 lb 8 oz Medical - DS: A/P - Patient/Caregiver Discharge Instructions Activity: increase activity as tolerated Diet: Regular Diet Additional Instructions: Follow up with Dr Leach, in 2 weeks for follow up on neurology Follow up PCP in 1 week Go to the ER if worsening condition, fever, chest pain, shortness of breath or any other acute concern. i have prescribed low dose oxycodone just in case the pain gets unbearable, otherwise patient prefers to use ibuprofen. Famotid has been used just for GI prophylasix along with the use of NSAIDs. - Follow up Plan Follow up with: Jere Hernandez MD [Primary Care Provider] - Disposition: Xfer SNF Prognosis: Fair Rehab Potential: Fair I certify that the patient requires SNF services: Yes Overall status at discharge: patient is progressing back to baseline Medical - DS: Qual - VTE Deep Vein Thrombosis/Pulmonary Embolism Present on Admission: No
== END 2017-08-27 10:10 | DRG 536 ==
LOC: ED 20:32 → MEDSUR 08-24
PROVIDERS: ADMIT Internal Medicine; ATTEND Internal Medicine

== ENCOUNTER 2020-06-06 13:58 | Inpatient (IN) ==
--- NOTE | 2020-06-06 15:36 | Emergency Department Note ---
SOB HPI General Chief Complaint: Shortness of Breath/Dyspnea Stated Complaint: shortness of breath, weakness Time Seen by Provider: 06/06/20 14:01 Source: patient, family and EMS Mode of arrival: ambulatory Limitations: other (The patient is in moderate distress secondary to shortness of breath and tachycardia) History of Present Illness HPI Narrative: Narrative: Patient presents via EMS for evaluation of shortness of breath. Patient has a previous diagnosis of myasthenia gravis. She denies any known history of cardiac tachycardia dysrhythmia, CHF or coronary artery disease. The patient was seen last night at an outside facility at that time was noted to be in atrial fibrillation with rapid ventricular response as well as respiratory distress. The patient left AGAINST MEDICAL ADVICE. The patient was doing well this morning until just prior to arrival when she developed worsening shortness of breath. On arrival the patient is noted to have a narrow complex tachycardia in the rate of 200s. Further history is limited secondary to the patient's acute presentation. Related Data Home Medications Medication Instructions Recorded Confirmed pyridostigmine bromide [Mestinon 180 mg PO QID 06/06/20 06/06/20 Timespan] Previous Rx's Medication Instructions Recorded Front wheel walker #1 ea 11/01/17 Shoe lift #1 ea 05/05/18 pyridostigmine bromide 180 mg See Rx Instructions PO Q4H 30 Days 12/29/19 tablet,extended release #540 tab Allergies Allergy/AdvReac Type Severity Reaction Status Date / Time meperidine Allergy Unknown UNKNOWN Verified 06/06/20 14:38 nabumetone Allergy Unknown UNKNOWN Verified 06/06/20 14:38 nitrofurantoin Allergy Unknown UNKNOWN Verified 06/06/20 14:38 Sulfa (Sulfonamide Allergy Unknown NERVE PAIN Verified 06/06/20 14:38 Antibiotics) [SULFA (SULFONAMIDE ANTIBIOTICS)] sulfamethoxazole Allergy Unknown Unknown Verified 06/06/20 14:38 [From Bactrim] trimethoprim [From Bactrim] Allergy Unknown Unknown Verified 06/06/20 14:38 ciprofloxacin AdvReac Severe muscle Verified 06/06/20 14:38 weakness, myasthenia clindamycin AdvReac Intermediate Other Uncoded 05/05/20 15:28 Review of Systems ROS ROS Narrative: Narrative: Limitations: ROS unobtainable due to patients medical condition PFSH Narrative Patient History Narrative: Narrative: Medical/Surgical/Family History All Active Problems (Updated 06/06/20 @ 18:26 by Carlos Busby MD) Atrial fibrillation with RVR (Acute) Influenza A (Acute) Atypical pigmented skin lesion (Acute) Calculus of parotid gland (Acute) Pelvic ring fracture (Acute) Urinary retention (Acute) Osteoporosis (Chronic) Pelvic ring fracture with routine healing (Acute) Lymphedema of both lower extremities (Chronic) Stress incontinence, female (Chronic) Raynaud phenomenon (Chronic 02/22/14) Osteoarthrosis (Chronic) Myasthenia gravis without exacerbation (Chronic) 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 May need either antibiotics, surgery, but nothing today is weeping, no fever, chills, etc so elects to leave over the next weeks until she can see her dentis. Atypical pigmented skin lesion Bladder prolapse (03/05/13) Blurred vision Status: Improving Calculus of parotid gland Degenerative disc disease (03/05/13) Incompetence or weakening of rectovaginal tissue (02/16/13) and possible rectovaginal cyst Lymphedema of both lower extremities KATHRINE stockings daily, in the early am til retired at night, heat, ongoing gentle massage and leg elevation Myasthenia gravis without exacerbation ongoing supportive care with PRN mestinon, which she determines when and how much to use for symptom control Osteoarthrosis Pedal edema Status: Improving Raynaud phenomenon (02/22/14) Sialoadenitis (09/26/13) Bilateral, right greater than left Stress incontinence, female Traumatic petechiae Unsteady gait Status: Unchanged Surgical History History of History of colonoscopy 2003 or 2005 Adenomatous polyps History of hysterectomy History of knee replacement x2 History of rectocele Rectocele Repair x2 History of spinal fusion Spinal fusion x 3 Family History Brother Asthma Malignant neoplasm Lung, Mouth and Throat (all smoking related) Sister Asthma All 8 Siblings Asthma Cardiac disease Sister Cyst of breast Malignant neoplasm Osteoporosis Induced fractures Unknown Diabetes mellitus Disorder of thyroid Father Cardiac disease Malignant neoplasm Mother Cardiac disease Social History Smoking Status: Never smoker Alcohol Intake Frequency: does not drink Exam Narrative Narrative: Narrative: General Limitations: other (The patient is in moderate distress secondary to shortness of breath and tachycardia) General appearance: Present alert Head Head: Present atraumatic, normocephalic and normal inspection Eye Eye: Present normal appearance and EOMI; Absent conjunctival injection ENT ENT: Present normal exam and mucous membranes moist Neck Neck: Present normal inspection and trachea midline Respiratory Respiratory: Present normal lung sounds bilaterally; Absent respiratory distress Cardiovascular Cardiovascular: Present tachycardia and normal heart sounds Adbominal Abdominal: Present soft; Absent distention, tenderness, guarding and rebound Extremities Extremities: Present normal inspection; Absent tenderness Back Back: Present normal inspection; Absent tenderness Neurological Neurological: Present alert, oriented X3 and CN II-XII intact; Absent motor sensory deficit Psychiatric Psychiatric: Present normal affect and normal mood Skin Skin: Present warm (WNL) and dry; Absent rash Course Vital Signs Vital signs: Vital Signs Pulse Rate 113 H 06/06/20 14:15 Respiratory Rate 29 H 06/06/20 14:15 Blood Pressure 108/62 06/06/20 14:15 Pulse Oximetry (%) 95 06/06/20 14:15 Temperature 98.4 F 06/06/20 14:16 Pulse Rate 110 H 06/06/20 15:01 Respiratory Rate 26 H 06/06/20 15:01 Blood Pressure 116/94 06/06/20 15:01 Pulse Oximetry (%) 98 06/06/20 15:01 [facility] MDM Narrative Medical decision making narrative: Narrative: EKG Data EKG #1: EKG attestation: Yes I reviewed and interpreted this EKG. and Yes There are no EKG findings of acute coronary syndrome EKG results narrative: Atrial fibrillation with rapid ventricular response, narrow complex tachycardia, effuse ST segment depression which is most likely rate related Rhythm Strip Data Rhythm Strip Rate: 110 Interpretation: Intermittent sinus tachycardia with narrow complex tachycardia in the rates of 200 CC TIME Critical Care Time Critical Care Time: Yes Total Critical Care Time: 30 Attestation: Approximately [30] minutes of critical care time was used in order to assess and manage the high probability of imminent or life threatening deterioration to the patient's cardiopulmonary status which required my highest level of preparedness and interventions with frequent patient assessments. This time is excluding time spent on separately billable procedures. On arrival the patient was noted to be intermittently in sinus tachycardia versus a narrow complex tachycardia which may have represented either atrial fibrillation with rapid ventricular response, atrial flutter with one-to-one conduction or narrow complex ventricular tachycardia. While the patient was having an IV line established the patient did intermittently convert and finally remained in a sustained sinus tachycardia. I was able to obtain medical records from the patient's visit at an outside facility last night. It appears the patient presented with similar symptomology and was noted to be in atrial fibrillation with rapid ventricular response with suspected associated heart failure. The patient left AGAINST MEDICAL ADVICE and did well until this morning when symptoms returned prior to arrival. I have also discussed the patient's case with Dr. Ordonez. She states that the patient's diagnosis of myasthenia gravis is mild however she does well clinically with treatment and has continued on this treatment regimen. She is not aware of any known cardiovascular disease. The patient's tachydysrhythmia has spontaneously improved without any further intervention. At the change of shift the patient has been in the emergency department for approximately 4 hours and clinically has significantly improved. She is currently in normal sinus rhythm. She is in no respiratory distress. The patient's labs are currently pending. Results that are currently available include an EKG which initially showed a narrow complex tachycardia. A second EKG shows a normal sinus rhythm with no injury or ischemia pattern. The patient's chest x-ray shows no evidence of pulmonary edema or consolidation. The patient's Covid swab is negative. She is positive for influenza A. The patient did have an initial lactic acid was elevated at 4.6. The patient did present with tachypnea and tachycardia, however I do believe this is more due to cardiac dysrhythmia versus a true sepsis presentation. I do not believe the patient requires antibiotics at this time. I have had a long discussion at the bedside with the patient as well as with the oncoming physician regarding the patient's disposition. The patient is adamantly refusing to be transferred to [facility]. In addition she states that she will not be transferred out of the [place]. She states to me that she knows that she may however she does not wish to be transferred. I do believe the patient is at high risk for a repeat episode of tachydysrhythmia and would benefit from admission to the hospital as well as consultation with a supervisor pre wave. I have asked the oncoming physician to follow-up on the patient's labs and ultimately disposition the patient. Discharge Plan Patient/Caregiver Discharge Instructions Pt seen by CARDIOVASCULAR PHYSICIAN ASSISTANT/PA only: No Clinical Impression: Atrial fibrillation with RVR, Myasthenia gravis without exacerbation, Influenza A Patient Disposition: Still a Patient Condition: Fair Follow up with: Markel Abernathy MD, FAAFP [Primary Care Provider] - Prescriptions: No Action (DME) Front wheel walker Qty: 1 RF: 0 pyridostigmine bromide 180 mg tablet extended release See Patient Comments mg PO Q4H 30 Days Qty: 540 RF: 3 (DME) Shoe lift Qty: 1 RF: 0 pyridostigmine bromide [Mestinon Timespan] 180 mg tablet extended release 180 mg PO QID RF: 0
--- NOTE | 2020-06-06 16:10 | XRay Report ---
HISTORY: Short of breath and weakness FINDINGS: The lungs are clear. Right diaphragm is mildly elevated. This is of undetermined etiology. The heart size and pulmonary vasculature are normal. There is no pleural effusion. Mild osteoarthritis is present in both shoulders. Comparison the prior exam from 08/24/17 shows the elevation right diaphragm is a new finding. IMPRESSION: No acute abnormality Interpreted and Authenticated by: Melquiades Ayala 06/06/20
[2020-06-06] MEDS ORDERED: 0.9 % SODIUM CHLORIDE 1,000 ML IV ONE (17:51)
[2020-06-06 19:09] LABS: Hematocrit 41.4 % (36.0-48.0); Hemoglobin 13.6 g/dL (12.0-15.0); Mean Cell Volume 91.2 fL (80.0-100.0); Mean Corpuscular HGB Conc 32.9 g/dL (31.0-36.0); Mean Platelet Volume 10.5 fL (7.4-10.4); Platelet Count 137 K/mcL (140-440); RBC 4.54 M/mcL (4.00-5.20); Red Cell Distribution Width 13.9 % (11.5-14.5); WBC 26.5 K/mcL (4.5-11.0)
[2020-06-06 19:11] LABS: Band Neutrophils % 13 % (0-10); Lymphocytes % 4 % (15-49); Metamyelocytes % 4 %; Monocytes % (Manual) 6 % (1-12); Platelet Estimate NORMAL (Normal); RBC Morphology NORMAL (Normal); Segmented Neutrophils % 73 % (38-78); Toxic Granulation 1+ (None Seen)
[2020-06-06 19:25] LABS: ALT/SGPT 186 U/L (<40); AST/SGOT 207 U/L (<32); Albumin 1.9 gm/dL (3.2-5.2); Albumin/Globulin Ratio 0.5 (1.0-2.3); Alkaline Phosphatase 589 U/L (39-117); Bilirubin,Total 2.8 mg/dL (0.1-1.0); Blood Urea Nitrogen 44 mg/dL (8-23); Calcium 8.9 mg/dL (8.6-10.4); Carbon Dioxide 14 mmol/L (22-30); Chloride 105 mmol/L (96-108); Globulin 4.1 gm/dL (2.2-3.7); Glomerular Filtration Rate 23; Glucose 79 mg/dL (70-105); Thyroid Stimulating Hormone 4.14 uIU/mL (0.27-5.01)
--- NOTE | 2020-06-06 20:16 | Emergency Department Note ---
ED Note Addendum Note Addendum: Patient was signed out to me by Dr. Carlos Busby. Please see his note for further information. In brief this is an 89-year-old female with history of myasthenia gravis who has been with cardiac tachyarrhythmias and new diagnosis of influenza. Her labs today show evidence of multiorgan failure with acute kidney injury and elevated liver function studies as well as troponin of 0.06 in addition to the previously noted tachyarrhythmias. Patient was with attempted transfer to hospital with cardiology but patient continues to refuse transfer out of the [place] as well as any transfer to [facility] in [place]. She states understanding of the current concerns with her heart as well as the lack of cardiac subspecialty care here at [facility]. Patient notes that she is happy to be a DO NOT RESUSCITATE type admission but would like to confer with her family because her daughters have been so involved and wants to take into consideration there concerns and wishes as far as her CODE STATUS. I have spent greater than 45 minutes bedside with the patient talking with her as far as attempts at admission and cardiac concerns. Throughout patient has been able to answer intelligently and communicate her wishes as well as delineate her reasons for care. I did spend additional time in trying to address any concerns she might have with being transferred elsewhere noting that if any of her concerns could be alleviated perhaps she could be transferred. Her daughter was called and acknowledges patient refusal for transfer from [facility] and is supportive of the patient. Patient states understanding that she could perish from the current condition especially if there was further decompensation. She at several points made note of what we could do to get her her med so she could go home if we could not admit her here. I discussed with the patient that I did not feel that she would be able to go home and and in the absence of other options I would do well I could for admission here to the hospital. I have spoken with the hospitalist extensively and noted the concern for her significant serious condition and risk of and related the patient's prior conversation regarding her desires and wishes. After discussion with hospitalist, further CT scans and ultrasound were ordered to further evaluate her renal and hepatic function as well as other status regarding multiorgan failure. As previously noted by Dr. Busby, patient is with evidence of fluid overload but also with the acute condition and while she has received some slight amount of fluids the concern is for fluid overload in a patient who is currently noting that she does not wish to be intubated and thus have not gone as aggressively as would otherwise be done because of the potential for sudden respiratory worsening. Will attempt to speak further with patient regarding the allowance of intubation if only for fluid overload that would allow us to then be more aggressive with IV fluid hydration. 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 When presented with this evidence patient and family elected to make her status DO NOT RESUSCITATE and patient is admitted here to the hospital at [facility] under the care of hospitalist. I have spent 35 minutes in the evaluation, diagnosis, and treatment, exclusive of separate billable procedures in this patient with Influenza and multiorgan system failure.
--- NOTE | 2020-06-06 21:42 | Internal Med History&Physical ---
HPI History of Present Illness Patient information: Note initiated : 06/06/20 at 9:31 pm Service Date, if different from initiated Date: [] Patient: Abby Bradford a 89 y/o F admitted on for shortness of breath, weakness. Chief Complaint: Shortness of breath and weakness History of present illness: Ms. Bradford is a 89 year old F with a history of myasthenia gravis follows with Dr. Oconnell neurology. Patient presents to the ER with gradually progressive shortness of breath along with weakness, difficulty swallowing. Notably she was seen at the [facility] ER with similar symptoms and was found in A. fib with RVR but she left AMA following a brief treatment in the ER. Her symptoms however gotten progressively worse since this morning [facility] Initial work-up was consistent with acute renal failure creatinine 1.9/elevated LFTs resolving obstructive pattern. White count 26,[address] abdomen consistent with innumerable infiltrative liver lesions consistent with malignancy. Patient was also in A. fib with RVR that responded to diltiazem. Patient refused transfer to tertiary center for evaluation of liver mass/elevated troponin and narrow complex tachyarrhythmia/renal failure. She understands that [facility] does not have the resources in terms of cardiology or oncology that would necessitate further evaluation and management of her medical issues. She adamantly refused transfer to any nearby facility and wants to be treated at [facility]. There was an extensive discussion about ER physicians and patient in this presence of her daughter. Subsequently hospitalist service was consulted At the time of my evaluation patient is accompanied with the daughter. She endorses to symptoms as above. She feels very weak and would like to be back on her Mestinon. She also complains abdominal discomfort and shortness of breath. I reviewed the imaging results are consistent with infiltrative liver lesions/possible abscess and the biochemical work-up consistent with renal failure/sepsis. Again I explained that due to the lack of resources it would be best for her to be transferred to a tertiary center which she refused and would like to be treated symptomatically. She and her daughter expressed understanding that this may lead to her due to worsening sepsis, renal failure and liver failure. Patient denies diarrhea, dysuria, headache, photophobia but endorses to lightheadedness, dizziness and difficulty swallowing that is limiting her ability to take her usual medications and food. She feels very thirsty. She denies abdominal pain, bloody stool, diarrhea, dysuria Review of systems 10 point review of system was performed and is negative except for ones discussed above PFSH PFSH All Active Problems (Updated 06/06/20 @ 18:26 by Carlos Busby MD) Atrial fibrillation with RVR (Acute) Influenza A (Acute) Atypical pigmented skin lesion (Acute) Calculus of parotid gland (Acute) Pelvic ring fracture (Acute) Urinary retention (Acute) Osteoporosis (Chronic) Pelvic ring fracture with routine healing (Acute) Lymphedema of both lower extremities (Chronic) Stress incontinence, female (Chronic) Raynaud phenomenon (Chronic 02/22/14) Osteoarthrosis (Chronic) Myasthenia gravis without exacerbation (Chronic) 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 May need either antibiotics, surgery, but nothing today is weeping, no fever, chills, etc so elects to leave over the next weeks until she can see her dentis. Atypical pigmented skin lesion Bladder prolapse (03/05/13) Blurred vision Status: Improving Calculus of parotid gland Degenerative disc disease (03/05/13) Incompetence or weakening of rectovaginal tissue (02/16/13) and possible rectovaginal cyst Lymphedema of both lower extremities KATHRINE stockings daily, in the early am til retired at night, heat, ongoing gentle massage and leg elevation Myasthenia gravis without exacerbation ongoing supportive care with PRN mestinon, which she determines when and how much to use for symptom control Osteoarthrosis Pedal edema Status: Improving Raynaud phenomenon (02/22/14) Sialoadenitis (09/26/13) Bilateral, right greater than left Stress incontinence, female Traumatic petechiae Unsteady gait Status: Unchanged Surgical History History of History of colonoscopy 2003 or 2005 Adenomatous polyps History of hysterectomy History of knee replacement x2 History of rectocele Rectocele Repair x2 History of spinal fusion Spinal fusion x 3 Family History Brother Asthma Malignant neoplasm Lung, Mouth and Throat (all smoking related) Sister Asthma All 8 Siblings Asthma Cardiac disease Sister Cyst of breast Malignant neoplasm Osteoporosis Induced fractures Unknown Diabetes mellitus Disorder of thyroid Father Cardiac disease Malignant neoplasm Mother Cardiac disease Social History marital status: smoking status: Never smoker alcohol intake frequency: does not drink MEDS/ALLERGIES Home Medications and Allergies Home Medications Medication Instructions Recorded Confirmed Type Front wheel walker #1 ea 11/01/17 05/05/20 Rx Shoe lift #1 ea 05/05/18 05/05/20 Rx pyridostigmine bromide 180 mg See Rx Instructions PO Q4H 30 Days 12/29/19 05/05/20 Rx tablet,extended release #540 tab pyridostigmine bromide [Mestinon 180 mg PO QID 06/06/20 06/06/20 History Timespan] Allergies Allergy/AdvReac Type Severity Reaction Status Date / Time meperidine Allergy Unknown UNKNOWN Verified 06/06/20 14:38 nabumetone Allergy Unknown UNKNOWN Verified 06/06/20 14:38 nitrofurantoin Allergy Unknown UNKNOWN Verified 06/06/20 14:38 Penicillins Allergy Unknown Numbness Verified 06/07/20 06:09 Sulfa (Sulfonamide Allergy Unknown NERVE PAIN Verified 06/06/20 14:38 Antibiotics) [SULFA (SULFONAMIDE ANTIBIOTICS)] sulfamethoxazole Allergy Unknown Unknown Verified 06/06/20 14:38 [From Bactrim] trimethoprim [From Bactrim] Allergy Unknown Unknown Verified 06/06/20 14:38 ciprofloxacin AdvReac Severe muscle Verified 06/06/20 14:38 weakness, myasthenia clindamycin AdvReac Intermediate Other Uncoded 05/05/20 15:28 EXAM Constitutional Vitals: Temp Pulse Resp BP Pulse Ox 98.4 F 101 H 15 105/67 97 06/06/20 14:16 06/06/20 21:16 06/06/20 21:16 06/06/20 21:16 06/06/20 21:16 Intermittently confused but responding to commands Head normocephalic Oral cavity dry, dry mucous membrane No ear nose discharge Eye movement symmetrical Neck supple no lymphadenopathy S1-S2 tachycardia, irregular Nonlabored breathing on 1 L oxygen Nondistended minimally tender abdomen Lower extremity no cyanosis clubbing or joint swelling Skin no suspicious lesion Psych anxious Neuro GCS 12 DATA Data Completed and Pending Labs: Labs from last 24 hours 06/06/20 06/06/20 06/06/20 17:59 17:59 17:58 WBC 26.5 H RBC 4.54 Hgb 13.6 Hct 41.4 MCV 91.2 MCH 30.0 MCHC 32.9 RDW 13.9 Plt Count 137 L MPV 10.5 H Neut % (Auto) Lymph % (Auto) [place] % (Auto) Eos % (Auto) Baso % (Auto) Lymph # (Auto) [place] # (Auto) Eos # (Auto) Baso # (Auto) Seg Neutrophils % 73 Band Neutrophils % 13 H Lymphocytes % 4 L Monocytes % (Manual) 6 Metamyelocytes % 4 Absolute Neutrophils Differential Comment Toxic Granulation 1+ A Platelet Estimate Normal RBC Morphology Normal VBG Lactic Acid Sodium 137 Potassium 3.0 L Chloride 105 Carbon Dioxide 14 L Anion Gap 18.0 H BUN 44 H Creatinine 1.9 H GFR Calculation 23 Glucose 79 Calcium 8.9 Total Bilirubin 2.8 H AST 207 H ALT 186 H Alkaline Phosphatase 589 H Troponin T 0.06 H* NT-Pro-B Natriuret Pep 8420.0 H Total Protein 6.0 Albumin 1.9 L Globulin 4.1 H Albumin/Globulin Ratio 0.5 L TSH 4.14 06/06/20 06/06/20 06/06/20 16:33 16:10 16:10 WBC TNP RBC TNP Hgb TNP Hct TNP MCV TNP MCH TNP MCHC TNP RDW TNP Plt Count TNP MPV TNP Neut % (Auto) TNP Lymph % (Auto) TNP [place] % (Auto) TNP Eos % (Auto) TNP Baso % (Auto) TNP Lymph # (Auto) TNP [place] # (Auto) TNP Eos # (Auto) TNP Baso # (Auto) TNP Seg Neutrophils % Band Neutrophils % Lymphocytes % Monocytes % (Manual) Metamyelocytes % Absolute Neutrophils TNP Differential Comment TNP Toxic Granulation Platelet Estimate RBC Morphology VBG Lactic Acid 4.6 H* Sodium Potassium Chloride Carbon Dioxide Anion Gap BUN Creatinine GFR Calculation Glucose Calcium Total Bilirubin AST ALT Alkaline Phosphatase Troponin T TNP NT-Pro-B Natriuret Pep Total Protein Albumin Globulin Albumin/Globulin Ratio TSH 06/06/20 15:00 WBC RBC Hgb Hct MCV MCH MCHC RDW Plt Count MPV Neut % (Auto) Lymph % (Auto) [place] % (Auto) Eos % (Auto) Baso % (Auto) Lymph # (Auto) [place] # (Auto) Eos # (Auto) Baso # (Auto) Seg Neutrophils % Band Neutrophils % Lymphocytes % Monocytes % (Manual) Metamyelocytes % Absolute Neutrophils Differential Comment Toxic Granulation Platelet Estimate RBC Morphology VBG Lactic Acid Sodium TNP Potassium TNP Chloride TNP Carbon Dioxide TNP Anion Gap TNP BUN TNP Creatinine TNP GFR Calculation TNP Glucose TNP Calcium TNP Total Bilirubin TNP AST TNP ALT TNP Alkaline Phosphatase TNP Troponin T NT-Pro-B Natriuret Pep TNP Total Protein TNP Albumin TNP Globulin TNP Albumin/Globulin Ratio TNP TSH TNP A/P Narrative A/P Narrative: * Severe sepsis with multiple endorgan dysfunction(including elevated troponin/A. fib RVR/AMS/GABO/hypoxia). White count 26,000/bandemia 13%. Broad antibiotic coverage/pancultures/crystalloids and vasopressors indicated * A. fib RVR secondary to sepsis endorgan dysfunction. Rate control measures on beta-emma/amiodarone if indicated. Elevated troponin however patient refused to see cardiology consult or transfer to tertiary center clearly understand the risk of . * Acute hypoxic respiratory failure secondary to sepsis endorgan dysfunction * infiltrative liver mass likely metastatic a possible metabolic abscess-patient refused further evaluation or transfer to tertiary center/GI consult * Elevated LFT consistent with infiltrating liver lesion/obstructive process * Acute renal failure secondary to sepsis endorgan dysfunction. Creatinine 1.9. Continue crystalloids and avoid nephrotoxins * acute influenza with viral syndrome-start Tamiflu. Continue supportive treatment * History of myasthenia continue Mestinon * DNR * Prophylaxis Heparin Plan * Inpatient ICU admission in light of [place] 2 score over 20 signifying very high risk mortality. Family and patient aware * Rate control measures * Broad antibiotic coverage * Vasopressors if indicated * Monitor renal function * Tamiflu Critical care time spent in excess of 35 minutes on management of severe sepsis with endorgan failure/discussion with physician/family and patient coordinating care and transfer to ICU Time Spent With Patient Time: Total time spent is greater than 50% in coordination of care (as documented) at patient's floor/unit and/or counseling patient:
[2020-06-06] MEDS ORDERED: ACETAMINOPHEN 325 MG TABLET PO PRN (22:40)
[2020-06-06] MEDS ORDERED: BISACODYL 10 MG SUPP.RECT PR PRN (22:40)
[2020-06-06] MEDS ORDERED: MELATONIN 3 MG TABLET PO PRN (22:40)
[2020-06-06] MEDS ORDERED: ACETAMINOPHEN 650 MG/65 ML BAG IV PRN (22:40)
[2020-06-06] MEDS ORDERED: POLYETHYLENE GLYCOL 3350 17 GM PACKET PO PRN (22:40)
[2020-06-06] MEDS ORDERED: ONDANSETRON 4 MG/2 ML VIAL IV PRN (22:40)
[2020-06-06] MEDS ORDERED: 0.9 % SODIUM CHLORIDE 1,000 ML IV SCH ×2 (22:40)
[2020-06-06] MEDS ORDERED: MAGNESIUM SULFATE 2 GM/50 ML BAG IV PRN (22:40)
[2020-06-06] MEDS ORDERED: NOREPINEPHRINE BITARTRATE 8 MG in 0.9 % SODIUM CHLORIDE 242 ML IV SCH (22:40)
[2020-06-06] MEDS ORDERED: POTASSIUM CHLORIDE 40 MEQ in DEXTROSE 5% IN WATER 500 ML IV PRN (22:40)
[2020-06-06] MEDS ORDERED: ONDANSETRON 4 MG ODT TABLET SL PRN (22:40)
[2020-06-06] MEDS ORDERED: PIPERACILLIN SODIUM/TAZOBACTAM 3.375 GM in DEXTROSE 5% IN WATER 50 ML IV SCH (22:40)
[2020-06-06] MEDS ORDERED: METOPROLOL TARTRATE 5 MG/5 ML VIAL IV PRN (22:40)
[2020-06-07] MEDS: 0.9 % SODIUM CHLORIDE 250 ML IV SCH ×2 (01:34→10:46)
[2020-06-07] MEDS: CEFEPIME 1 GM VIAL ONE (01:41)
[2020-06-07] MEDS: 0.9 % SODIUM CHLORIDE 10 ML SYRINGE IV SCH ×2 (01:42→05:21)
[2020-06-07] MEDS: CEFEPIME 2 GM VIAL IV SCH ×2 (01:42)
[2020-06-07] MEDS ORDERED: 0.9 % SODIUM CHLORIDE 1,000 ML IV ONE (04:13)
[2020-06-07] MEDS ORDERED: ACETAMINOPHEN 1,000 MG/100 ML BAG IV ONE (05:05)
--- NOTE | 2020-06-07 07:43 | Cat Scan Report ---
History: Shortness of breath, weakness, evaluate for underlying infection besides flu Technique: The patient was imaged without contrast scanning at 2.5 mm intervals from the thoracic inlet through the symphysis pubis. Sagittal, coronal and axial MIPS images were created. Radiation exposure was limited using dose reduction technology. CHEST: Mild subpleural atelectasis is present in the basilar segments of both lower lobes. There is also minor atelectasis or scar adjacent to the mediastinum in the medial segment of the right middle lobe. There is no evidence of pneumonia. No pleural effusion is present. There are no abnormally enlarged lymph nodes in the mediastinum or prashant. Heart size is normal. A moderate amount calcified plaque is present in the coronary arteries and aortic arch. The aorta is normal in caliber. Abdomen and pelvis: Evaluation of abdominal organs without contrast is somewhat limited. There are multiple ill-defined low-attenuation masslike lesions scattered throughout the liver. The largest is in the right lobe and measures 7.0 x 7.2 x 8.6 cm. The overall size liver is normal. The gallbladder is surgically absent. The bile ducts are nondilated. No abnormality seen within the pancreas. The spleen is normal in size and homogeneous. The adrenals are normal. In the lower pole the left kidney there is a 2 cm exophytic cyst. The kidneys are otherwise normal without evidence of kidney stone, hydronephrosis or inflammation. Large amount calcified plaques present along the wall normal caliber abdominal aorta. Numerous diverticula are present throughout the colon. There is no evidence of acute diverticulitis. There are a few air-fluid levels within jejunum and ileum. There are segments of ileum which have circumferential thickened ryan measuring up to 9 mm. No abscess or ascites are present in the abdomen or pelvis. No enlarged lymph nodes are present. Uterus has been removed. Neither ovary is visualized. There is no evidence of appendicitis. Urinary bladder is incompletely distended but appears normal. Bone windows shows an old fracture in the left pubic bone. There is advanced degenerative disc disease and arthritis in the mid and upper lumbar spine. No lytic or blastic lesion are present. IMPRESSION: Diverticulosis but without diverticulitis Thickening of the wall of segments of the ileum which may be due to inflammation and less likely ischemia. Numerous liver lesions which are more likely due to malignancy within liver abscesses Mild bibasilar atelectasis Interpreted and Authenticated by: Melquiades Ayala 06/07/20
--- NOTE | 2020-06-07 07:50 | Ultrasound Report ---
History: Weakness, evaluate for underlying infection besides flu, multiple liver lesions seen on the preceding abdominal CT FINDINGS: The liver is very heterogeneous. In the right lobe there is a 5.9 x 6.3 x 6.5 cm heterogeneous solid structure which contains both hypo and mildly hyperechoic components. Doppler shows it has some blood flow along the periphery. This corresponds with the large lesion seen in the right lobe in the preceding abdomen CT scan. There are also a few smaller complex cystic-appearing structures which measure up to 1.2 cm. These contain some internal echogenic material. Doppler also demonstrates normal flow in the hepatic and portal veins. No ascites is present. Visualized portions of the pancreas are normal. The tail is obscured by bowel gas. The gallbladder has been removed. The common bile duct measures up to 6.5 mm. There is no dilatation of the intrahepatic ducts. Spleen is normal in size and homogeneous. The right kidney measures 3.2 x 4.1 x 9.5 cm. The cortex is mildly echogenic suggesting chronic medical renal disease. The left kidney measures 3.9 x 4.6 x 11.2 cm. The cortex appears normal in thickness and echogenicity. A 1.9 cm cyst is present at the lower pole of the left kidney. No kidney stone or hydronephrosis are present in either kidney. Much of the aorta is obscured by bowel gas. The stomach segment is normal in caliber. IMPRESSION: Very heterogeneous liver with solid and cystic masses. This could be due to multifocal liver abscesses or necrotic tumor. Interpreted and Authenticated by: Melquiades Ayala 06/07/20
[2020-06-07] MEDS: DOCUSATE SODIUM 100 MG CAPSULE PO SCH ×2 (08:12→08:46)
[2020-06-07] MEDS: OSELTAMIVIR PHOSPHATE 75 MG CAPSULE PO SCH ×2 (08:12→08:47)
[2020-06-07] MEDS: MULTIVIT,THER IRON,CA,FA & MIN 1 TABLET PO SCH ×2 (08:12→08:47)
[2020-06-07 08:32] LABS: ALT/SGPT 184 U/L (<40); AST/SGOT 209 U/L (<32); Albumin 2.2 gm/dL (3.2-5.2); Albumin/Globulin Ratio 0.6 (1.0-2.3); Alkaline Phosphatase 505 U/L (39-117); Bilirubin,Direct 3.3 mg/dL (<0.3); Bilirubin,Total 3.3 mg/dL (0.1-1.0); Blood Urea Nitrogen 50 mg/dL (8-23); Calcium 8.4 mg/dL (8.6-10.4); Carbon Dioxide 14 mmol/L (22-30); Chloride 108 mmol/L (96-108); Globulin 3.9 gm/dL (2.2-3.7); Glomerular Filtration Rate 19; Glucose 68 mg/dL (70-105); Lactate Dehydrogenase 472 U/L (135-225); Phosphorous 3.5 mg/dL (2.5-4.5); Triglycerides 213 mg/dL (<150); Uric Acid 7.4 mg/dL (2.5-8.0)
[2020-06-07] MEDS ORDERED: HEPARIN 5,000 UNIT/ML VIAL SQ SCH (09:00)
[2020-06-07 09:02] LABS: Basophils # (Auto) 0.02 K/mcL (0.00-0.20); Basophils % (Auto) 0 % (0.0-2.0); Eosinophils # (Auto) 0.01 K/mcL (0.00-0.70); Eosinophils % (Auto) 0 % (0.0-7.0); Hematocrit 45.3 % (36.0-48.0); Hemoglobin 14.8 g/dL (12.0-15.0); Lymphocytes # (Auto) 1.29 K/mcL (1.50-4.80); Lymphocytes % (Auto) 2.4 % (15.0-49.0); Mean Cell Volume 91.1 fL (80.0-100.0); Mean Corpuscular HGB Conc 32.7 g/dL (31.0-36.0); Mean Platelet Volume 10.8 fL (7.4-10.4); Monocytes # (Auto) 0.96 K/mcL (0.10-0.90); Monocytes % (Auto) 1.8 % (1.0-12.0); Neutrophils % (Auto) 95.8 % (38.0-78.0); Platelet Count 78 K/mcL (140-440); RBC 4.97 M/mcL (4.00-5.20); Red Cell Distribution Width 14.4 % (11.5-14.5); WBC 52.7 K/mcL (4.5-11.0)
[2020-06-07] MEDS ORDERED: morphine 2 MG/ML VIAL IV PRN (09:30)
[2020-06-07] MEDS ORDERED: LORazepam 2 MG/ML VIAL IV ONE (10:02)
[2020-06-07] MEDS ORDERED: LORazepam 2 MG/ML VIAL ONE (10:16)
--- NOTE | 2020-06-07 10:18 | Internal Med Progress Note ---
SUBJECTIVE Subjective Patient information: Note initiated : 06/07/20 at 10:13 am Service Date, if different from initiated Date: [] Patient: Abby Bradford a 89 y/o F admitted on 06/06/20 for shortness of breath, weakness. Chief Complaint: [] Interval history: Ms. Bradford is a 89 year old F with a history of myasthenia gravis follows with Dr. Oconnell neurology. Patient presents to the ER with gradually progressive shortness of breath along with weakness, difficulty swallowing. Notably she was seen at the [facility] ER with similar symptoms and was found in A. fib with RVR but she left AMA following a brief treatment in the ER. Her symptoms however gotten progressively worse since this morning prompting her to visit [facility] ER Initial work-up was consistent with acute renal failure creatinine 1.9/elevated LFTs resolving obstructive pattern. White count 26,[address] abdomen consistent with innumerable infiltrative liver lesions consistent with malignancy. Patient was also in A. fib with RVR that responded to diltiazem. Patient refused transfer to tertiary center for evaluation of liver mass/elevated troponin and narrow complex tachyarrhythmia/renal failure. She understands that [facility] does not have the resources in terms of cardiology or oncology that would necessitate further evaluation and management of her medical issues. She adamantly refused transfer to any nearby facility and wants to be treated at [facility]. There was an extensive discussion about ER physicians and patient in this presence of her daughter. Subsequently hospitalist service was consulted At the time of my evaluation patient is accompanied with the daughter. She endorses to symptoms as above. She feels very weak and would like to be back on her Mestinon. She also complains abdominal discomfort and shortness of breath. I reviewed the imaging results are consistent with infiltrative liver lesions/possible abscess and the biochemical work-up consistent with renal failure/sepsis. Again I explained that due to the lack of resources it would be best for her to be transferred to a tertiary center which she refused and would like to be treated symptomatically. She and her daughter expressed understanding that this may lead to her due to worsening sepsis, renal failure and liver failure. Patient denies diarrhea, dysuria, headache, photophobia but endorses to lightheadedness, dizziness and difficulty swallowing that is limiting her ability to take her usual medications and food. She feels very thirsty. She denies abdominal pain, bloody stool, diarrhea, dysuria 06/07-patient remains critically ill. White count at 52,000 suggestive of leukemoid reaction and intrahepatic abscess. Clinical deterioration noted. Imminent due to fulminant sepsis. More confused and short of breath. Remains critically ill. [place] 2 score 23. Daughter requested patient to be transition to comfort care for end-of-life due to extreme distress from abdominal pain and shortness of breath. Also daughter calling multiple family members to facilitate the last goodbyes before she passes away. At this time we will transition her to palliation only with aggressive pain and symptom management Constitutional Vitals: Vital Signs Temp Pulse Resp BP Pulse Ox 97.1 F 123 H 20 98/58 94 06/07/20 04:01 06/07/20 09:26 06/07/20 09:26 06/07/20 07:31 06/07/20 09:26 Period Temp Pulse Resp BP Sys/Willis Pulse Ox Last 24 Hr 97.1 F-98.8 F 88-205 15-49 85-156/49-98 89-99 Intake and Output 06/06/20 06/07/20 06/07/20 21:59 05:59 13:59 Intake Total 1000 1065 0 Output Total 1 Balance 1000 1064 0 Weight 72.121 kg 70.398 kg Labored breathing, confused Discomfort from abdominal pain Tachycardic Intake & Output: Intake & Output 06/06/20 06/07/20 06/07/20 21:59 05:59 13:59 Intake Total 1000 1065 0 Output Total 1 Balance 1000 1064 0 Weight 72.121 kg 70.398 kg Intake: IV 1000 1065 Sodium Chloride 0.9% 1,000 ml @ 1000 1000 Wide Open IV BOLUS GENA Rx#: [id number] Oral 0 0 Output: # of times incontinent of urine 1 Other: Stool Size Moderate Stool Color Black Stool Consistency Loose # Voids 1 # of times incontinent of 1 Bowels OBJ DATA Labs CBC & Chem 7: 06/07/20 06:55 06/07/20 06:55 Labs: Abnormal Lab Results 06/07/20 06/07/20 06/07/20 06:55 06:55 06:55 WBC 52.7 H* Plt Count 78 L MPV 10.8 H Neut % (Auto) 95.8 H Lymph % (Auto) 2.4 L Lymph # (Auto) 1.29 L [place] # (Auto) 0.96 H Band Neutrophils % Lymphocytes % Absolute Neutrophils 50.45 H Toxic Granulation VBG Lactic Acid 3.0 H Potassium 3.2 L Carbon Dioxide 14 L Anion Gap 18.0 H BUN 50 H Creatinine 2.2 H Glucose 68 L Calcium 8.4 L Total Bilirubin 3.3 H Direct Bilirubin 3.3 H AST 209 H ALT 184 H Alkaline Phosphatase 505 H Lactate Dehydrogenase 472 H Troponin T NT-Pro-B Natriuret Pep Albumin 2.2 L Globulin 3.9 H Albumin/Globulin Ratio 0.6 L Triglycerides 213 H Procalcitonin 06/07/20 06/06/20 06/06/20 06:55 17:59 17:59 WBC Plt Count MPV Neut % (Auto) Lymph % (Auto) Lymph # (Auto) [place] # (Auto) Band Neutrophils % Lymphocytes % Absolute Neutrophils Toxic Granulation VBG Lactic Acid Potassium 3.0 L Carbon Dioxide 14 L Anion Gap 18.0 H BUN 44 H Creatinine 1.9 H Glucose Calcium Total Bilirubin 2.8 H Direct Bilirubin AST 207 H ALT 186 H Alkaline Phosphatase 589 H Lactate Dehydrogenase Troponin T 0.06 H* NT-Pro-B Natriuret Pep 8420.0 H Albumin 1.9 L Globulin 4.1 H Albumin/Globulin Ratio 0.5 L Triglycerides Procalcitonin 33.96 H 06/06/20 06/06/20 17:58 16:33 WBC 26.5 H Plt Count 137 L MPV 10.5 H Neut % (Auto) Lymph % (Auto) Lymph # (Auto) [place] # (Auto) Band Neutrophils % 13 H Lymphocytes % 4 L Absolute Neutrophils Toxic Granulation 1+ A VBG Lactic Acid 4.6 H* Potassium Carbon Dioxide Anion Gap BUN Creatinine Glucose Calcium Total Bilirubin Direct Bilirubin AST ALT Alkaline Phosphatase Lactate Dehydrogenase Troponin T NT-Pro-B Natriuret Pep Albumin Globulin Albumin/Globulin Ratio Triglycerides Procalcitonin Meds: Medications Acetaminophen (Acetaminophen 325 Mg Tablet) 650 mg PO Q4-6HP PRN; Protocol PRN Reason: Per Pain Protocol/Fever > 101 Bisacodyl (Bisacodyl 10 Mg Supp.Rect) 10 mg [place] Q2-3DAYS PRN PRN Reason: Constipation Cefepime HCl (Cefepime 2 Gm Vial) 1 gm IV DAILY [facility]; Protocol Docusate Sodium (Docusate Sodium 100 Mg Capsule) 100 mg PO BID [facility] Last Admin: 06/07/20 08:46 Dose: Not Given Documented by: Heparin Sodium (Porcine) (Heparin 5,000 Unit/Ml Vial) 5,000 unit SQ Q12 [facility] Last Admin: 06/07/20 08:12 Dose: 5,000 unit Documented by: Sodium Chloride (Sodium Chloride 0.9%) 1,000 mls @ 0 mls/hr IV BOLUS [facility] Last Infusion: 06/07/20 00:14 Dose: Infused Documented by: Sodium Chloride (Sodium Chloride 0.9%) 1,000 mls @ 50 mls/hr IV .Q20H [facility] Stop: 06/09/20 10:39 Last Admin: 06/07/20 00:19 Dose: 50 mls/hr Documented by: Potassium Chloride 40 meq/ (Dextrose) 520 mls @ 130 mls/hr IV UD PRN PRN Reason: K+ = or < 3.5 Acetaminophen (Ofirmev) 650 mg in 65 mls @ 130 mls/hr IV Q6HP PRN; Protocol PRN Reason: Per Pain Protocol/Fever > 101 Last Infusion: 06/07/20 05:28 Dose: Infused Documented by: Magnesium Sulfate (Magnesium Sulfate) 2 gm in 50 mls @ 50 mls/hr IV UD PRN PRN Reason: MG = or < 1.7 Norepinephrine Bitartrate 8 mg (/ Sodium Chloride) 250 mls @ 18.75 mls/hr IV Q14H [facility]; Protocol Last Admin: 06/07/20 01:34 Dose: Not Given Documented by: Sodium Chloride (Sodium Chloride 0.9%) 250 mls @ 20 mls/hr IV .[id number] [facility] Last Admin: 06/07/20 01:34 Dose: Not Given Documented by: Iron Carb/Multivit/Pipe Bowls Paint Trimmer/Folic Acid (Multivit,Ther Iron,Ca,Fa & Min 1 Tablet) 1 tab PO DAILY [facility] Last Admin: 06/07/20 08:47 Dose: Not Given Documented by: Lorazepam (Lorazepam 2 Mg/Ml Vial) 1 mg IV ONCE ONE Stop: 06/07/20 10:03 Last Admin: 06/07/20 10:08 Dose: 1 mg Documented by: Melatonin (Melatonin 3 Mg Tablet) 3 mg PO HSP PRN PRN Reason: Insomnia Metoprolol Tartrate (Metoprolol Tartrate 5 Mg/5 Ml Vial) 5 mg IV Q5M PRN PRN Reason: Heart Rate > 140 bpm Morphine Sulfate (Morphine 2 Mg/Ml Vial) 2 mg IV Q2HP PRN; Protocol PRN Reason: Per Pain Protocol Last Admin: 06/07/20 09:35 Dose: 2 mg Documented by: Ondansetron HCl (Ondansetron 4 Mg Odt Tablet) 4 mg SL Q4-6HP PRN; Protocol PRN Reason: Nausea And Vomiting Ondansetron HCl (Ondansetron 4 Mg/2 Ml Vial) 4 mg IV Q4-6HP PRN; Protocol PRN Reason: Nausea And Vomiting Oseltamivir Phosphate (Oseltamivir Phosphate 75 Mg Capsule) 75 mg PO BID [facility] Last Admin: 06/07/20 08:47 Dose: Not Given Documented by: Polyethylene Glycol (Polyethylene Glycol 3350 17 Gm Packet) 17 gm PO DAILYP PRN PRN Reason: Constipation Senna/Docusate Sodium (Sennosides/Docusate Sodium 1 Tab Tablet) 1 tab PO HS [facility] Sodium Chloride (0.9 % Sodium Chloride 10 Ml Syringe) 10 ml IV Q8 [facility] Last Admin: 06/07/20 05:21 Dose: Not Given Documented by: A/P Narrative A/P Narrative: * Severe sepsis with multiple endorgan dysfunction(including elevated troponin/A. fib RVR/AMS/GABO/hypoxia). White count 26,000/bandemia 13%. Broad antibiotic coverage/pancultures/crystalloids and vasopressors indicated * Leukemoid reaction-secondary intra-hepatic abscess * Infiltrative liver mass with hepatic abscess * A. fib RVR secondary to sepsis endorgan dysfunction. * Acute hypoxic respiratory failure secondary to sepsis endorgan dysfunction * Acute renal failure secondary to sepsis endorgan dysfunction. * acute influenza with viral syndrome * History of myasthenia * DNR comfort care Plan * Transition to comfort care, imminent * Pastoral support * DC antibiotics * Initiate aggressive pain and symptom management * Transfer to medical floor Critical care time spent in excess of 35 minutes on management of severe sepsis with endorgan failure/discussion with family and transition to end-of-life care Time Spent With Patient Time: Total time spent is greater than 50% in coordination of care (as documented) at patient's floor/unit and/or counseling patient: QUALITY VTE Deep Vein Thrombosis/Pulmonary Embolism Present on Admission: No
[2020-06-07] MEDS ORDERED: HYDROmorphone 1 MG/ML SYRINGE IV PRN (10:46)
[2020-06-07] MEDS ORDERED: LORazepam 2 MG/ML VIAL IV PRN (10:46)
[2020-06-07] MEDS ORDERED: ONDANSETRON 4 MG ODT TABLET SL PRN (10:46)
[2020-06-07] MEDS: morphine 4 MG/ML VIAL IV PRN ×4 (12:16→15:55)
[2020-06-07] MEDS ORDERED: 0.9 % SODIUM CHLORIDE 10 ML SYRINGE IV SCH (14:00)
[2020-06-07] MEDS ORDERED: CEFEPIME 2 GM VIAL IV SCH (17:00)
--- NOTE | 2020-06-07 17:09 | Death Note ---
Discharge Sum: Prov Provider Patient information: Note initiated : 06/07/20 at 5:07 pm Service Date, if different from initiated Date: [] Patient: Abby Bradford 89 y/o F admitted on 06/06/20 for shortness of breath, weakness. Cause of * Severe sepsis with multiorgan failure * Liver abscess * Liver malignancy Time of 16:40 PM Brief hospital course Ms. Bradford is a 89 year old F with a history of myasthenia gravis follows with Dr. Oconnell neurology. Patient presents to the ER with gradually progressive shortness of breath along with weakness, difficulty swallowing. Notably she was seen at the [facility] ER with similar symptoms and was found in A. fib with RVR but she left AMA following a brief treatment in the ER. Her symptoms however gotten progressively worse since this morning [facility] Initial work-up was consistent with acute renal failure creatinine 1.9/elevated LFTs resolving obstructive pattern. White count 26,[address] abdomen consistent with innumerable infiltrative liver lesions consistent with malignancy. Patient was also in A. fib with RVR that responded to diltiazem. Patient refused transfer to tertiary center for evaluation of liver mass/elevated troponin and narrow complex tachyarrhythmia/renal failure. She understands that [facility] does not have the resources in terms of cardiology or oncology that would necessitate further evaluation and management of her medical issues. She adamantly refused transfer to any nearby facility and wants to be treated at [facility]. There was an extensive discussion about ER physicians and patient in this presence of her daughter. Subsequently hospitalist service was consulted At the time of my evaluation patient is accompanied with the daughter. She endorses to symptoms as above. She feels very weak and would like to be back on her Mestinon. She also complains abdominal discomfort and shortness of breath. I reviewed the imaging results are consistent with infiltrative liver lesions/possible abscess and the biochemical work-up consistent with renal failure/sepsis. Again I explained that due to the lack of resources it would be best for her to be transferred to a tertiary center which she refused and would like to be treated symptomatically. She and her daughter expressed understanding that this may lead to her due to worsening sepsis, renal failure and liver failure. Patient denies diarrhea, dysuria, headache, photophobia but endorses to lightheadedness, dizziness and difficulty swallowing that is limiting her ability to take her usual medications and food. She feels very thirsty. She denies abdominal pain, bloody stool, diarrhea, dysuria 06/07-patient remains critically ill. White count at 52,000 suggestive of leukemoid reaction and intrahepatic abscess. Clinical deterioration noted. Im minent due to fulminant sepsis. More confused and short of breath. Remains critically ill. [place] 2 score 23. Daughter requested patient to be transition to comfort care for end-of-life due to extreme distress from abdominal pain and shortness of breath. Also daughter calling multiple family members to facilitate the last goodbyes before she passes away. At this time we will transition her to palliation only with aggressive pain and symptom management 1640-patient succumbed to progressive multiorgan failure secondary to severe sepsis. Primary care physician: Markel Abernathy M.D., F.A.A.F.P. Consults: 06/06/20 Consult to Physician [CONS] Stat Comment: Consulting Provider: Delonte Chicas Reason For Exam: Physician to Consult Discharge Sum: Summary Date and Time Date of admission: 06/06/20 22:35 Additional Data Attending physician: Delonte Chicas
[2020-06-07] MEDS ORDERED: SENNOSIDES/DOCUSATE SODIUM 1 TAB TABLET PO SCH (21:00)
[2020-06-08] MEDS: CEFEPIME 1 GM VIAL ONE (06:54)
== END 2020-06-07 16:40 | disposition expired | DRG 871 ==
LOC: ED 13:58 → ICU 22:35 → MEDSUR 06-07 11:08
PROVIDERS: ADMIT Internal Medicine; ATTEND Internal Medicine